=== PATIENT | male | born 1955 | race Caucasian/White ===

== ENCOUNTER 2016-10-21 17:08 | Emergency (ER) | payer SELFPAY ==
[~2016-10-21] VITALS: Ht 182.9 cm; Wt 84.1 kg
[~2016-10-21 17:08] MED LIST: DULE100A INH; GABA600T PO; HUMSS; METF500 PO
[2016-10-21 17:10] VITALS: BP 101/66; PULSE 105; RESP 12; TEMP 98.4; O2SAT 96
== END 2016-10-21 18:11 | disposition left against medical advice (07) ==
LOC: NED 17:08
DX: M54.9 Dorsalgia, unspecified (principal)
CPT/HCPCS: 99281

== ENCOUNTER 2016-11-06 08:25 | Inpatient (IN) | payer OTHER ==
[~2016-11-06] VITALS: Ht 182.9 cm; Wt 85.6 kg
[2016-11-06 08:27] VITALS: BP 104/56; PULSE 98; RESP 18; TEMP 97.6; O2SAT 98
[2016-11-06] MEDS ORDERED: LACT10SO27 (08:54)
[2016-11-06] MEDS ORDERED: SPIR100T PO (08:54)
[2016-11-06] MEDS ORDERED: FURO1TAB61 PO (08:54)
--- NOTE | 2016-11-06 08:54 | PD ---
HPI Chief Complaint: Pain: Acute or Chronic Time Seen by Provider: 08:45 Travel History International Travel<30 days: No Contact w/Intl Traveler<30days: No Traveled to known affect area: No History of Present Illness HPI 61-year-old male presents to the emergency department with complaint of mid back pain 8 weeks. Worse over the last week and a half. He has history of fracture to his T5 or T6 after coughing a year ago. He says this pain is similar to when it was fractured. 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 He then had a CT scan which showed the fracture. He denies new or recent injury in the last 8 weeks. Pain is midline. Says pain is 10/10. Denies paresthesias, loss of sensation, decreased range of motion, decreased strength to all extremities. Denies fever, chills, nausea, vomiting, abdominal pain, chest pain, shortness of breath. Has tried taking ibuprofen with no relief of symptoms. Pain is worse with sitting, palpation, walking. No known relieving factors. History of COPD, end-stage renal disease, hypertension, diabetes, neuropathy. Dr. Lemus is primary care provider. No other modifying factors or associated signs and symptoms. PFSH Past Medical History Cirrhosis: Yes COPD: Yes Diabetes: Yes Diminished Hearing: No Hepatitis: Yes (C) Respiratory: Yes (COPD) Past Surgical History Abdominal Surgery: Yes (bowel resection for diverticulitis, HERNIA MESH) Social History Alcohol Use: No Tobacco Use: No Substance Use: No Allergies-Medications (Allergen,Severity, Reaction): Coded Allergies: Penicillin (Verified Allergy, Severe, 11/06/16) Reported Meds & Prescriptions Reported Meds & Active Scripts Active Reported Hydroxyzine HCl 10 Mg Tab 10 Mg PO TID Oxycodone (Oxycodone HCl) 5 Mg Cap 5 Mg PO Q6H PRN Cipro (Ciprofloxacin HCl) 250 Mg Tab 250 Mg PO BID Lactulose Liq (Lactulose (Encephalopathy) Liq) 19 Gm/15 Ml Soln BID Lasix (Furosemide) 80 Mg Tab 80 Mg PO DAILY Spironolactone 100 Mg Tab 100 Mg PO DAILY Dulera 100 mcg/dose (Mometasone Furoate-Formoterol 100 mcg/dose) Unknown Strength Inh 2 Puff INH BID Glucophage 500 mg (Metformin HCl) 500 Mg Tab 500 Mg PO TID Gabapentin 600 Mg Tab 600 Mg PO TID Review of Systems Except as stated in HPI: all other systems reviewed are Neg Physical Exam Narrative GENERAL: Well-nourished, well-developed male patient, in no acute distress SKIN: Warm and dry. HEAD: Atraumatic. Normocephalic. EYES: Pupils equal and round, No scleral icterus. No injection or drainage. ENT: Mucosa pink and moist. Airway patent. NECK: Trachea midline. CARDIOVASCULAR: Regular rate and rhythm. No murmur appreciated. RESPIRATORY: No accessory muscle use. Clear to auscultation. Breath sounds equal bilaterally. GASTROINTESTINAL: Abdomen soft, non-tender, nondistended. Hepatic and splenic margins not palpable. Bowel sounds are active 4 quadrants. BACK: No rash. Midline point tenderness on palpation of the thoracic spine. MUSCULOSKELETAL: No obvious deformities. No clubbing. No cyanosis. No edema. NEUROLOGICAL: Awake and alert. Oriented 3. No obvious cranial nerve deficits. Motor grossly within normal limits. Normal speech. PSYCHIATRIC: Appropriate mood and affect; insight and judgment normal. Data Data Last Documented VS Vital Signs Date Time Temp Pulse Resp B/P Pulse Ox O2 Delivery O2 Flow Rate FiO2 11/06/16 08:27 97.6 98 18 104/[address] Thor Spine W/O Contrast (11/06/16 ) Consult Neurosurgery (11/06/16 ) (Hub Use Only)Inp Phy Cons/Ref (11/06/16 ) Admit Order (Ed Use Only) (11/06/16 11:54) MDM Medical Decision Making Medical Screen Exam Complete: Yes Emergency Medical Condition: Yes Medical Record Reviewed: Yes Differential Diagnosis Acute exacerbation of chronic back pain, back strain, chronic back pain Narrative Course 61-year-old male with mid thoracic back pain. History of T5 or T6 fracture secondary to a cough times one year ago. No new or recent injuries. Midline point tenderness on palpation of the thoracic spine on physical exam. CT thoracic spine ordered. 1057: CT thoracic spine concludes osteoporotic spine with anterior wedging as described above; there is wedging of T11 that could be acute; MRI is the only way we have to sort this out without prior films which I have none. 1110: I discussed the CT findings with Dr. Khanna, my attending physician, and she recommended to call neuro surgery for recommendation. Call placed to neurosurgeon. 1113: I spoke with Natali from Dr. Alvares's and she is going to have Dr. Alvares review the CT scan and call me back with further instruction. 1132: Return phone call from natali received. Dr. Alvares would like the patient admitted and MRI ordered. MRI of thoracic spine ordered. Consult Dr. Alvares entered. Call placed to [facility] admit patient. 1154: I spoke with KIMBERLY Greene. Report given for admission. Physician Communication Physician Communication Dr. Dia Hurst' PA-C KIMBERLY Pike Diagnosis Primary Impression: Thoracic back pain Qualified Code: M54.6 - Midline thoracic back pain, unspecified chronicity Admitting Information Admitting Physician Requests: Admit Charley López Nov 06, 2016 08:54
[2016-11-06] MEDS ORDERED: CIPR250T52 PO (08:55)
[2016-11-06] MEDS ORDERED: OXYC1CAP PO (08:56)
[2016-11-06] MEDS ORDERED: HYDR-755 PO (09:24)
--- NOTE | 2016-11-06 10:49 | RADRPT ---
EXAM DATE/TIME: 11/06/2016 09:45 [facility] COMPARISON: No previous studies available for comparison. INDICATIONS : Mid back pain. History of T5 fracture. RADIATION DOSE: 37.81 CTDIvol (mGy) MEDICAL HISTORY : Chronic obstructive pulmonary disease. Hepatitis C. Diabetes mellitus type 2. SURGICAL HISTORY : Kyphoplasty. ENCOUNTER: Initial ACUITY: 2 months PAIN SCALE: 10/10 LOCATION: Mid-upper back TECHNIQUE: Volumetric scanning of the thoracic spine was performed. Multiplanar reconstructions in the sagittal , coronal and oblique axial planes were performed. Using automated exposure control and adjustment o f the mA and/or kV according to patient size, radiation dose was kept as low as reasonably achievable to obtain optimal diagnostic quality images. FINDINGS: The patient has had a previous kyphoplasty in the T-6 vertebral body. There is minimal anterior wedging of T-11, age indeterminate. There is minimal loss of vertebral bod y height at T-9. There is moderate loss of disc space height at multiple levels. Anterior osteophyt es are noted. CONCLUSION: Osteoporotic spine with anterior wedging as described above. There is wedging of T-11 that could be acute. MRI is the only way we have to sort this out without prior films which I have none. Kiko Maldonado MD FACR on November 06, 2016 at 10:40 Board Certified Radiologist. This report was verified electronically.
[2016-11-06] MEDS ORDERED: ONDANSETRON HCL 4 MG/2 ML VIAL IV PUSH PRN (12:15)
[2016-11-06] MEDS ORDERED: HYDROmorphone HCL PF 1 MG/ML VIAL IV PUSH PRN (12:15)
[2016-11-06] MEDS ORDERED: GLUCAGON 1 MG/ML VIAL OTHER PRN (12:15)
[2016-11-06] MEDS ORDERED: RESP: ALBUTEROL 0.63 MG/3 ML NEB (PRN) NEB (12:15)
[2016-11-06] MEDS ORDERED: ACETAMINOPHEN 325 MG TAB PO PRN (12:15)
[2016-11-06] MEDS ORDERED: DEXTROSE 50% IN WATER 50 ML VIAL(D50) IV PUSH PRN (12:15)
[2016-11-06] MEDS ORDERED: ACETAMINOPHEN/HYDROcodone 325 MG/5 MG TAB PO PRN ×2 (12:15)
--- NOTE | 2016-11-06 12:16 | HHI.HP ---
[facility] Service [place] [facility] Primary Care Physician Non-Staff Admission Diagnosis thoracic back pain, thoracic fracture Diagnoses: (1) Back pain Diagnosis: Principal Chief Complaint: back pain Travel History International Travel<30 Days: No Contact w/Intl Traveler <30 Da: No Traveled to Known Affected Are: No History of Present Illness patient is a 61 y/o male with history of thoracic spine fracture- s/p surgery, about a year ago presented to ER with back pain. he says that the pain is in upper back. pain started several weeks ago and gradually got worse. he says that the pain is worse when he's sleeping on his side and better when he's walking. he tried some oxycodone and motrin at home with no significant improvement. he denies any weakness of the legs, urine or stool incontinence. he doesn't recall any recent falls or injuries. Review of Systems Constitutional: DENIES: Fever, Weight loss, Chills, Night Sweats Eyes: DENIES: Blurred vision, Diplopia, Vision loss, Double Vision Ears, nose, mouth, throat: DENIES: Tinnitus, Vertigo, Throat pain, Epistaxis Respiratory: DENIES: Apneas, Cough, Snoring, Wheezing, Hemoptysis, Sputum production, Shortness of breath Cardiovascular: DENIES: Chest pain, Palpitations, Syncope, Dyspnea on Exertion , PND, Lower Extremity Edema, Orthopnea, Claudication Gastrointestinal: DENIES: Abdominal pain, Black stools, Bloody stools, Constipation, Diarrhea, Nausea, Vomiting, Difficulty Swallowing, Anorexia Genitourinary: DENIES: Urinary frequency, Urgency, Hematuria, Dysuria Musculoskeletal: COMPLAINS OF: Back pain, DENIES: Joint pain, Muscle aches, Stiffness, Joint Swelling Integumentary: DENIES: Rash Neurologic: DENIES: Abnormal gait, Headache, Localized weakness, Paresthesias, Seizures, Speech Problems, Tremor, Poor Balance Psychiatric: DENIES: Anxiety, Confusion, Mood changes, Depression, Hallucinations, Agitation, Suicidal Ideation, Homicidal Ideation, Delusions Past Family Social History Past Medical History diabetes mellitus hypertension cirrhosis COPD diverticulitis Past Surgical History back surgery surgery on the left hand colon resection Reported Medications Hydroxyzine HCl 10 Mg Tab 10 Mg PO TID Oxycodone (Oxycodone HCl) 5 Mg Cap 5 Mg PO Q6H PRN Cipro (Ciprofloxacin HCl) 250 Mg Tab 250 Mg PO BID Lactulose Liq (Lactulose (Encephalopathy) Liq) 19 Gm/15 Ml Soln BID Lasix (Furosemide) 80 Mg Tab 80 Mg PO DAILY Spironolactone 100 Mg Tab 100 Mg PO DAILY Dulera 100 mcg/dose (Mometasone Furoate-Formoterol 100 mcg/dose) Unknown Strength Inh 2 Puff INH BID Glucophage 500 mg (Metformin HCl) 500 Mg Tab 500 Mg PO TID Gabapentin 600 Mg Tab 600 Mg PO TID Allergies: Coded Allergies: Penicillin (Verified Allergy, Severe, 11/06/16) Family History not relevant to this admission. Social History no smoking or drinking. Physical Exam Vital Signs Vital Signs Date Time Temp Pulse Resp B/P Pulse Ox O2 Delivery O2 Flow Rate FiO2 11/06/16 08:27 97.6 98 18 104/56 98 Room Air Physical Exam GENERAL: This is a well-nourished, well-developed patient, in no apparent distress. SKIN: No rashes, ecchymoses or lesions. Cool and dry. HEAD: Atraumatic. Normocephalic. No temporal or scalp tenderness. EYES: Pupils equal round and reactive. Extraocular motions intact. No scleral icterus. No injection or drainage. ENT: Nose without bleeding, purulent drainage or septal hematoma. Throat without erythema, tonsillar hypertrophy or exudate. Uvula midline. Airway patent. NECK: Trachea midline. No JVD or lymphadenopathy. Supple, nontender, no meningeal signs. CARDIOVASCULAR: Regular rate and rhythm without murmurs, gallops, or rubs. RESPIRATORY: Clear to auscultation. Breath sounds equal bilaterally. No wheezes , rales, or rhonchi. GASTROINTESTINAL: Abdomen soft, non-tender, nondistended. No hepato-splenomegaly , or palpable masses. No guarding. MUSCULOSKELETAL: Extremities without clubbing, cyanosis, or edema. No joint tenderness, effusion, or edema noted. No calf tenderness. Negative Homans sign bilaterally. NEUROLOGICAL: Awake and alert. Cranial nerves II through XII intact. Motor and sensory grossly within normal limits. Five out of 5 muscle strength in all muscle groups. Normal speech. Assessment and Plan Assessment and Plan A/P - back pain with history of thoracic spine fracture and surgery CT of the thoracic spine with possible acute fracture of T11 start pain management- MRI of the thoracic spine pending- neurosurgery consulted. -diabetes mellitus; accu-check with SSI -hypertension; vasotec as needed -Cirrhosis; resume home meds- pending the BMP today. -COPD with no exacerbation; neb treatment as needed -DVT prophylaxis with SCD's- pending neurosurgery evaluation. Discussed Condition With ER and the patient. Physician Certification 2 Midnight Certification Type: Admission for Inpatient Services Order for Inpatient Services The services are ordered in accordance with Medicare regulations or non- Medicare payer requirements, as applicable. In the case of services not specified as inpatient-only, they are appropriately provided as inpatient services in accordance with the 2-midnight benchmark. Estimated LOS (days): 2 days is the estimated time the patient will need to remain in the hospital, assuming treatment plan goals are met and no additional complications. Post-Hospital Plan: Not yet determined Problem Qualifiers (1) Back pain: Qualified Code: M54.6 - Thoracic back pain, unspecified back pain laterality, unspecified chronicity Enedina Prajapati MD Nov 06, 2016 12:16
[2016-11-06 12:40] LABS: AUTOMATED NEUTROPHIL # 3.3 TH/MM3 (1.8-7.7); BASOPHIL % 0.6 % (0.0-2.0); EOSINOPHIL # 0.4 TH/MM3 (0-0.4); EOSINOPHIL % 7.7 % (0.0-4.0); HEMATOCRIT 25.4 % (39.0-51.0); HEMO FLAGS DIFF FINAL; LYMPH % 16.4 % (9.0-44.0); LYMPHOCYTE # 0.9 TH/MM3 (1.0-4.8); MEAN CELL VOLUME 84.8 FL (80.0-100.0); MEAN CORPUSCULAR HEMOGLOBIN 29.5 PG (27.0-34.0); MEAN CORPUSCULAR HGB CONC 34.8 % (32.0-36.0); MONO % 13.7 % (0.0-8.0); NEUT % 61.6 % (16.0-70.0); PLATELET COUNT 125 TH/MM3 (150-450); RED CELL DISTRIBUTION WIDTH 16.4 % (11.6-17.2); WHITE BLOOD COUNT 5.4 TH/MM3 (4.0-11.0)
[2016-11-06 12:52] LABS: BICARBONATE 20.7 MEQ/L (21.0-32.0); POTASSIUM 4.4 MEQ/L (3.5-5.1)
[2016-11-06] MEDS ORDERED: ENALAPRILAT 1.25 MG/ML VIAL IV PUSH PRN (13:00)
--- NOTE | 2016-11-06 14:17 | PD.CONS ---
(Srinivasan Alvares MD) HPI Consult Requested By Primary Care Physician Non-Staff (Srinivasan Alvares MD) Service Neurosurgery Consult Requested By ED physician Reason for Consult Thoracic fracture History of Present Illness Mr. Mccoy is a 61-year-old male who presents to the emergency department with intractable posterior thoracic pain. He reports his pain began several weeks ago and has been progressively getting worse. He had a previous history of T6 kyphoplasty with resolution of his pain. Mr. Mcmahan denies any precipitating factors, trauma, or falls. He complains the pain is located in the upper - mid thoracic region, around the T5/6 area. He denies any radiating pain, dysesthesias, sensory loss in his legs, focal weakness, bowel or bladder dysfunction. He rates his pain as a 10/10. A CT of the thoracic spine showed a wedge compression fracture at T11. A neurosurgical evaluation was requested. (Mishel Foley) Review of Systems Constitutional: DENIES: Fever, Chills Eyes: DENIES: Diplopia, Vision loss Ears, nose, mouth, throat: DENIES: Hearing loss Respiratory: DENIES: Apneas, Cough, Hemoptysis Cardiovascular: DENIES: Chest pain, Palpitations Gastrointestinal: DENIES: Abdominal pain, Nausea, Vomiting Genitourinary: DENIES: Urinary incontinence Musculoskeletal: COMPLAINS OF: Back pain Neurologic: DENIES: Abnormal gait, Localized weakness, Paresthesias Psychiatric: DENIES: Hallucinations (Mishel Foley) Past Family Social History Allergies: Coded Allergies: Penicillin (Verified Allergy, Severe, 11/06/16) Past Medical History diabetes mellitus hypertension cirrhosis COPD diverticulitis Past Surgical History Past Surgical History back surgery surgery on the left hand colon resection Reported Medications Hydroxyzine HCl 10 Mg Tab 10 Mg PO TID Oxycodone (Oxycodone HCl) 5 Mg Cap 5 Mg PO Q6H PRN Cipro (Ciprofloxacin HCl) 250 Mg Tab 250 Mg PO BID Lactulose Liq (Lactulose (Encephalopathy) Liq) 19 Gm/15 Ml Soln BID Lasix (Furosemide) 80 Mg Tab 80 Mg PO DAILY Spironolactone 100 Mg Tab 100 Mg PO DAILY Dulera 100 mcg/dose (Mometasone Furoate-Formoterol 100 mcg/dose) Unknown Strength Inh 2 Puff INH BID Glucophage 500 mg (Metformin HCl) 500 Mg Tab 500 Mg PO TID Gabapentin 600 Mg Tab 600 Mg PO TID Active Ordered Medications Current Medications Medications (Trade) Dose Ordered Sig/[place] Route PRN Reason Start Time Stop Time Status Last Admin Dose Admin Dextrose (D50w (Vial) Inj) 25 ml UNSCH PRN IV PUSH HYPOGLYCEMIA-SEE COMMENTS 11/06/16 12:15 Glucagon (Glucagon Inj) 1 mg UNSCH PRN OTHER HYPOGLYCEMIA-SEE COMMENTS 11/06/16 12:15 Acetaminophen/ Hydrocodone Bitart ([place] 5-325 Mg) 1 tab Q4H PRN PO PAIN 1-5 11/06/16 12:15 Acetaminophen/ Hydrocodone Bitart ([place] 5-325 Mg) 2 tab Q4H PRN PO PAIN 6-10 11/06/16 12:15 Hydromorphone HCl (Dilaudid Pf Inj) 1 mg Q4H PRN IV PUSH BREAKTHROUGH PAIN 11/06/16 12:15 Ondansetron HCl (Zofran Inj) 4 mg Q8H PRN IV PUSH NAUSEA 11/06/16 12:15 Acetaminophen (Tylenol) 650 mg Q4H PRN PO FEVER/HEADACHE 11/06/16 12:15 Budesonide/ Formoterol Fumarate (Symbicort 160-4.5 Inh) 2 puff BID INH 11/06/16 21:00 Enalaprilat (Vasotec Inj) 1.25 mg Q8H PRN IV PUSH SBP> OR = 180, DBP> OR = 100 11/06/16 13:00 Family History Noncontributory Social History He denies tobacco, alcohol or illicit drug use (Mishel Foley) Physical Exam Vital Signs Vital Signs Date Time Temp Pulse Resp B/P Pulse Ox O2 Delivery O2 Flow Rate FiO2 11/06/16 08:27 97.6 98 18 104/56 98 Room Air Physical Exam Mr. Mcmahan is alert, awake and oriented to time, place and person. Speech is fluent Cranial nerve examination demonstrates the pupils to be equal, round, and reactive to light. Extra-ocular movements are intact. Facial motor and sensory function are normal and symmetrical. Gross hearing is intact, bilaterally. The uvula is midline and elevates symmetrically with the soft palate. Sternocleidomastoid and trapezius muscles have normal and symmetrical strength. Other cranial nerves are intact. Cervical spine has a some decrease range of motion in anterior flexion, extension, lateral bending, and rotation with discomfort Muscle testing reveals normal bulk and tone. Muscle strength is 5/5 in all muscle groups of both upper extremities including deltoid, biceps, triceps, brachioradialis, wrist extension and machine operator picker. In the lower extremities, strength is 5/5 in both iliopsoas, quadriceps, hamstrings, plantar flexion, dorsiflexion , and extensor hallicus longus. Sensory examination is intact to light touch in both the upper and lower extremities, symmetrically. Deep tendon reflexes are 2+ and symmetrical in the biceps, triceps, and brachioradialis, bilaterally, in the upper extremities. In the lower extremities , the patellar and Achilles are 2+, bilaterally. There is a bilateral plantar flexion response. Hoffmanns sign is negative. There is no clonus. Thoracic spine: tenderness and pain to palpation along the lower thoracic region Cerebellar examination is intact Laboratory Laboratory Tests Test 11/06/16 12:24 White Blood Count 5.4 Red Blood Count 3.00 Hemoglobin 8.8 Hematocrit 25.4 Mean Corpuscular Volume 84.8 Mean Corpuscular Hemoglobin 29.5 Mean Corpuscular Hemoglobin 34.8 Concent Red Cell Distribution Width 16.4 Platelet Count 125 Mean Platelet Volume 7.2 Neutrophils (%) (Auto) 61.6 Lymphocytes (%) (Auto) 16.4 Monocytes (%) (Auto) 13.7 Eosinophils (%) (Auto) 7.7 Basophils (%) (Auto) 0.6 Neutrophils # (Auto) 3.3 Lymphocytes # (Auto) 0.9 Monocytes # (Auto) 0.7 Eosinophils # (Auto) 0.4 Basophils # (Auto) 0.0 CBC Comment DIFF FINAL Differential Comment Sodium Level 134 Potassium Level 4.4 Chloride Level 103 Carbon Dioxide Level 20.7 Anion Gap 10 Blood Urea Nitrogen 20 Creatinine 1.67 Estimat Glomerular Filtration 42 Rate Random Glucose 95 Calcium Level 8.6 (Srinivasan Alvares MD) Physical Exam Mr. Mcmahan is alert, awake and oriented to time, place and person. Speech is appropriate. Cranial nerve examination demonstrates the pupils to be equal, round, and reactive to light. Extra-ocular movements are intact. Facial motor and sensory function are normal and symmetrical. Gross hearing is intact, bilaterally. The uvula is midline and elevates symmetrically with the soft palate. Sternocleidomastoid and trapezius muscles have normal and symmetrical strength. Other cranial nerves are intact. Cervical spine has a some decrease range of motion in anterior flexion, extension, lateral bending, and rotation with discomfort Muscle testing reveals normal bulk and tone. Muscle strength is 5/5 in all muscle groups of both upper extremities including deltoid, biceps, triceps, brachioradialis, wrist extension and machine operator picker. In the lower extremities, strength is 5/5 in both iliopsoas, quadriceps, hamstrings, plantar flexion, dorsiflexion , and extensor hallicus longus. Sensory examination is intact to light touch in both the upper and lower extremities, symmetrically. Deep tendon reflexes are 2+ and symmetrical in the biceps, triceps, and brachioradialis, bilaterally, in the upper extremities. In the lower extremities , the patellar and Achilles are 2+, bilaterally. There is a bilateral plantar flexion response. Hoffmanns sign is negative. There is no clonus. Thoracic spine: tenderness and pain to palpation along the lower thoracic region Cerebellar examination is intact to [id number] test Gait: He was observed ambulating appears stiff, but no ataxia seen (Mishel Foley) Result Diagram: 11/06/16 1224 11/06/16 1224 Attending Statement Neuro. I have reviewed his clinical and radiological findings. Start neuro checks in a serial fashion. He could have a pathological fracture. I recommend an MRI of the thoracic spine with and without contrast Respiratory. pulmonary toilette, nasotracheal suction, and breathing treatments with nebulizers. PT and OT Nutrition. Oral diet Renal. monitor closely urine output, BUN and creatinine Endocrine. Monitor serial Acu checks and SSI as needed in detail ID monitor for signs of infection Protonix for stress ulcer prophylaxis Hill hose and SCD's for DVT prophylaxis The exam, history, and the medical decision-making described in the above note were completed with the assistance of the mid-level provider. I reviewed and agree with the findings presented. I attest that I had a [id number] encounter with the patient on the same day, and personally performed and documented my assessment and findings in the medical record. (Srinivasan Alvares MD) Srinivasan Alvares MD Nov 06, 2016 14:17 Mishel Foley Nov 06, 2016 14:47
[2016-11-06 15:16] VITALS: BP 96/54; PULSE 88; RESP 18; O2SAT 97
[2016-11-06] MEDS: INSULIN ASPART SUPPLEMENTAL SCALE SQ SCH ×2 (15:57→20:26)
[2016-11-06] MEDS ORDERED: GADOBENATE DIM PF 529 MG/ML 20ML VIAL (for RAD MRI) IV ONE (16:25)
--- NOTE | 2016-11-06 17:32 | RADRPT ---
EXAM DATE/TIME: 11/06/2016 16:16 [facility] COMPARISON: CT THORACIC SPINE W/O CONTRAST, November 06, 2016, 9:45. INDICATIONS : Back pain. CONTRAST: 17 cc Multihance (gadobenate) IV MEDICAL HISTORY : Diabetes mellitus type 2. Liver disease. SURGICAL HISTORY : Colon resection. Kyphoplasty. ENCOUNTER: Initial ACUITY: 1 day PAIN SCORE: 5/10 LOCATION: Back pain TECHNIQUE: Multiplanar multisequence MRI of the thoracic spine was performed. FINDINGS: Sagittal images demonstrate normal vertebral body alignment and curvature. No focal area of marrow re placement are identified. The cord itself is normal in caliber and signal intensity. The conus termin ates normally. Axial images were performed from T1-T2 through T12-L1. There is previous kyphoplasty a t T6 as well as Schmorl's node involving the superior endplate of T11. T1-T2: No significant abnormalities identified. T2-T3: No significant abnormalities identified. T3-T4: No significant abnormalities identified. T4-T5: No significant abnormalities identified. T5-T6: No significant abnormalities identified. T6-T7: No significant abnormalities identified. T7-T8: No significant abnormalities identified. T8-T9: No significant abnormalities identified. T9-T10: No significant abnormalities identified. T10-T11: No significant abnormalities identified. T11-T12: There is Schmorl's superior endplate of T11 with enhancement centrally but no marrow edema t o suggest acute fracture. These occasionally can be symptom causing. T12-L1: No significant abnormalities identified. CONCLUSION: No evidence of acute fracture. Schmorl's node at T11. Ralph Loo MD on November 06, 2016 at 17:18 Board Certified Radiologist. This report was verified electronically.
[2016-11-06 18:47] VITALS: BP 124/67; PULSE 100; RESP 19; TEMP 98.5; O2SAT 99
[2016-11-06 20:22] VITALS: BP 116/63; PULSE 102; RESP 18; TEMP 96.6; O2SAT 97
[2016-11-06] MEDS: BUDESONIDE-FORMOTEROL 160/4.5 MCG INHALER INH SCH (20:26)
[2016-11-07 00:17] VITALS: BP 101/70; PULSE 99; RESP 18; TEMP 97.1; O2SAT 95
[2016-11-07 04:00] VITALS: BP 110/67; PULSE 101; RESP 20; TEMP 97; O2SAT 96
[2016-11-07] MEDS: INSULIN ASPART SUPPLEMENTAL SCALE SQ SCH ×4 (06:01→21:00)
[2016-11-07 07:55] VITALS: BP 124/90; PULSE 108; RESP 19; TEMP 96.9; O2SAT 97
[2016-11-07] MEDS: BUDESONIDE-FORMOTEROL 160/4.5 MCG INHALER INH SCH ×2 (09:00→22:44)
--- NOTE | 2016-11-07 11:07 | HHI.PR ---
Subjective Remarks resting with no acute distress. complaining of back pain which hasn't changed as much compared to yesterday. has some pain to the left arm. Objective Vitals Vital Signs Date Time Temp Pulse Resp B/P Pulse Ox O2 Delivery O2 Flow Rate FiO2 11/07/16 07:55 96.9 108 19 124/90 97 11/07/16 04:00 97.0 101 20 110/67 96 11/07/16 00:17 97.1 99 18 101/70 95 11/06/16 20:22 96.6 102 18 116/63 97 11/06/16 18:47 98.5 100 19 124/67 99 11/06/16 15:16 88 18 96/54 97 I/O 11/06/16 11/06/16 11/06/16 11/07/16 11/07/16 11/07/16 07:00 15:00 23:00 07:00 15:00 23:00 Intake Total 1440 ml 240 ml Balance 1440 ml 240 ml Intake Oral 1440 ml 240 ml # Voids 1 2 # Bowel Movements 0 Result Diagram: 11/06/16 1224 11/06/16 1224 Imaging Last Impressions Thoracic Spine MRI 11/06/16 0000 Signed Impressions: Service Date/Time: Sunday, November 06, 2016 16:16 - CONCLUSION: No evidence of acute fracture. Schmorl's node at T11. Ralph Loo MD Thoracic Spine CT 11/06/16 0000 Signed Impressions: Service Date/Time: Sunday, November 06, 2016 09:45 - CONCLUSION: Osteoporotic spine with anterior wedging as described above. There is wedging of T-11 that could be acute. MRI is the only way we have to sort this out without prior films which I have none. Kiko Maldonado MD FACR Objective Remarks GENERAL: This is a well-nourished, well-developed patient, in no apparent distress. CARDIOVASCULAR: Regular rate and regular rhythm without murmurs, gallops, or rubs. RESPIRATORY: Clear to auscultation. Breath sounds equal bilaterally. No wheezes , rales, or rhonchi. GASTROINTESTINAL: Abdomen soft, non-tender, nondistended. Normal, active bowel sounds MUSCULOSKELETAL: Extremities without clubbing, cyanosis, or edema. NEURO: Alert & Oriented x4 to person, place, time, situation. Moves all ext x4 Procedures none Medications and IVs Current Medications Dextrose (D50w (Vial) Inj) 25 ml UNSCH PRN IV PUSH HYPOGLYCEMIA-SEE COMMENTS; Start 11/06/16 at 12:15 Glucagon (Glucagon Inj) 1 mg UNSCH PRN OTHER HYPOGLYCEMIA-SEE COMMENTS; Start 11/06/16 at 12:15 Insulin Aspart (NovoLOG SUPPLEMENTAL SCALE) 1 ACHS SLIDING SCALE SQ ; Start 11/06/16 at 16:00 Acetaminophen/ Hydrocodone Bitart ([place] 5-325 Mg) 1 tab Q4H PRN PO PAIN 1-5; Start 11/06/16 at 12:15; Stop 11/06/16 at 14:37; Status DC Acetaminophen/ Hydrocodone Bitart ([place] 5-325 Mg) 2 tab Q4H PRN PO PAIN 6-10 ; Start 11/06/16 at 12:15; Stop 11/06/16 at 14:37; Status DC Hydromorphone HCl (Dilaudid Pf Inj) 1 mg Q4H PRN IV PUSH BREAKTHROUGH PAIN; Start 11/06/16 at 12:15 Ondansetron HCl (Zofran Inj) 4 mg Q8H PRN IV PUSH NAUSEA; Start 11/06/16 at 12: 15 Acetaminophen (Tylenol) 650 mg Q4H PRN PO FEVER/HEADACHE; Start 11/06/16 at 12: 15 Budesonide/ Formoterol Fumarate (Symbicort 160-4.5 Inh) 2 puff BID INH Last administered on 11/06/16t 20:26; Start 11/06/16 at 21:00 Albuterol Sulfate (Albuterol Neb) 0.63 mg Q6HR NEB PRN NEB SHORTNESS OF BREATH ; Start 11/06/16 at 12:15 Enalaprilat (Vasotec Inj) 1.25 mg Q8H PRN IV PUSH SBP> OR = 180, DBP> OR = 100 ; Start 11/06/16 at 13:00 Oxycodone HCl (Roxicodone) 5 mg Q4H PRN PO PAIN LESS THAN 5 ON SCALE Last administered on 11/06/16t 15:10; Start 11/06/16 at 14:45 Oxycodone HCl (Roxicodone) 10 mg Q4H PRN PO PAIN GREATER THAN 5 Last administered on 11/07/16 09:22; Start 11/06/16 at 14:45 Gadobenate Dimeglumine (Multihance Pf Inj) 17 ml STK-MED ONCE IV Last administered on 11/06/16 16:25; Start 11/06/16 at 16:25; Stop 11/06/16 at 16:26; Status DC A/P Assessment and Plan A/P - back pain with history of thoracic spine fracture and surgery CT of the thoracic spine with possible acute fracture of T11 MRI of the thoracic spine with no acute fracture. continue pain management- - neurosurgery consulted. -acute kidney injury; start gentle IV hydration- BMP in am -anemia due to chronic disease- will monitor; CBC in am -diabetes mellitus; accu-check with SSI -hypertension; vasotec as needed -Cirrhosis;hold diuretics due to renal failure -COPD with no exacerbation; neb treatment as needed -DVT prophylaxis with SCD's- Enedina Prajapati MD Nov 07, 2016 11:07
[2016-11-07] MEDS ORDERED: SODIUM CHLORID 0.9% 500 ML INJ 500 ML IV ONE (11:15)
[2016-11-07 13:13] VITALS: BP 130/66; PULSE 99; RESP 16; TEMP 99.3; O2SAT 94
--- NOTE | 2016-11-07 13:38 | HHI.NSPN ---
(Mishel Foley) Note Status Status: Progress Note (Mishel Foley) Interval History Interval History Mr. Mccoy is a 61-year-old male who presents to the emergency department with intractable posterior thoracic pain. He reports his pain began several weeks ago and has been progressively getting worse. He had a previous history of T6 kyphoplasty with resolution of his pain. Mr. Mcmahan denies any precipitating factors, trauma, or falls. He complains the pain is located in the upper - mid thoracic region, around the T5/6 area. He denies any radiating pain, dysesthesias, sensory loss in his legs, focal weakness, bowel or bladder dysfunction. He rates his pain as a 10/10. A CT of the thoracic spine showed a wedge compression fracture at T11. A neurosurgical evaluation was requested. 3: reports pain located between the shoulder blades. He also reports of some pain in the left arm. MRI T spine showed Schmorl's node at T11 without any edema suggesting an acute component. (Mishel Foley) Labs, Micro, & Vital Signs Results Date Time Temp Pulse Resp B/P Pulse Ox O2 Delivery O2 Flow Rate FiO2 11/07/16 13:13 99.3 99 16 130/66 94 11/07/16 07:55 96.9 108 19 124/90 97 11/07/16 04:00 97.0 101 20 110/67 96 11/07/16 00:17 97.1 99 18 101/70 95 11/06/16 20:22 96.6 102 18 116/63 97 11/06/16 18:47 98.5 100 19 124/67 99 11/06/16 15:16 88 18 96/54 97 11/07/16 07:00 Intake Total 1680 ml Balance 1680 ml Constitutional Vital Signs Date Time Temp Pulse Resp B/P Pulse Ox O2 Delivery O2 Flow Rate FiO2 11/07/16 13:13 99.3 99 16 130/66 94 11/07/16 07:55 96.9 108 19 124/90 97 11/07/16 04:00 97.0 101 20 110/67 96 11/07/16 00:17 97.1 99 18 101/70 95 11/06/16 20:22 96.6 102 18 116/63 97 11/06/16 18:47 98.5 100 19 124/67 99 11/06/16 15:16 88 18 96/54 97 11/07/16 07:00 Intake Total 1680 ml Balance 1680 ml (Mishel Foley) Review of Systems/Exam Exam Mr. Mcmahan is alert and oriented to time, place and person. Speech is fluent. Cranial nerve examination demonstrates the pupils to be equal, round, and reactive to light. Extra-ocular movements are intact. Facial motor are normal and symmetrical. Other cranial nerves are intact. Cervical spine has a good range of motion in anterior flexion, extension, lateral bending, and rotation without pain. Muscle testing reveals normal bulk and tone. Muscle strength is 5/5 in all muscle groups of both upper extremities including deltoid, biceps, triceps, brachioradialis, wrist extension and signal wirer. In the lower extremities, strength is 5/5 in both iliopsoas, quadriceps, hamstrings, plantar flexion, dorsiflexion , and extensor hallicus longus. Sensory examination is intact to light touch in both the upper and lower extremities, symmetrically. Deep tendon reflexes are 2+ and symmetrical in the biceps, triceps, and brachioradialis, bilaterally, in the upper extremities. In the lower extremities , the patellar and Achilles are 2+, bilaterally. There is a bilateral plantar flexion response. Hoffmanns sign is negative. There is no clonus. Thoracic spine: tenderness and pain to palpation along the lower thoracic region Cerebellar examination is intact to [id number] test Gait: He was observed ambulating appears stiff, but no ataxia seen (Mishel Foley) Medications Current Medications Current Medications Medications (Trade) Dose Ordered Sig/Talon Route PRN Reason Start Time Stop Time Status Last Admin Dose Admin Dextrose (D50w (Vial) Inj) 25 ml UNSCH PRN IV PUSH HYPOGLYCEMIA-SEE COMMENTS 11/06/16 12:15 Glucagon (Glucagon Inj) 1 mg UNSCH PRN OTHER HYPOGLYCEMIA-SEE COMMENTS 11/06/16 12:15 Hydromorphone HCl (Dilaudid Pf Inj) 1 mg Q4H PRN IV PUSH BREAKTHROUGH PAIN 11/06/16 12:15 Ondansetron HCl (Zofran Inj) 4 mg Q8H PRN IV PUSH NAUSEA 11/06/16 12:15 Acetaminophen (Tylenol) 650 mg Q4H PRN PO FEVER/HEADACHE 11/06/16 12:15 Budesonide/ Formoterol Fumarate (Symbicort 160-4.5 Inh) 2 puff BID INH 11/06/16 21:00 11/06/16 20:26 Enalaprilat (Vasotec Inj) 1.25 mg Q8H PRN IV PUSH SBP> OR = 180, DBP> OR = 100 11/06/16 13:00 Oxycodone HCl (Roxicodone) 5 mg Q4H PRN PO PAIN LESS THAN 5 ON SCALE 11/06/16 14:45 11/06/16 15:10 Oxycodone HCl 10 mg 10 mg Q4H PRN PO PAIN GREATER THAN 5 11/06/16 14:45 11/07/16 09:22 Sodium Chloride (NS 500 ml Inj) 500 ml @ 50 mls/hr Q10H ONCE IV 11/07/16 11:15 11/07/16 21:14 11/07/16 13:01 (Mishel Foley) Medical Decision Making MDM Remarks 61 y/o male with upper thoracic pain, MRI T spine shows no acute fractures, Schmorl's node at T11 (Mishel Foley) Plan Plan Remarks Dr. Alvares recommending MRI C spine, dw pt regarding MRI T spine results, may benefit with pain management (Mishel Foley) Attending Statement His thoracic MRI did not show any thoracic fracture Will obtain MRI cervical spine to rule out cervical etiology of his interscapular pain.' The exam, history, and the medical decision-making described in the above note were completed with the assistance of the mid-level provider. I reviewed and agree with the findings presented. I attest that I had a [id number] encounter with the patient on the same day, and personally performed and documented my assessment and findings in the medical record. (Srinivasan Alvares MD) Mishel Foley Nov 07, 2016 13:38 Srinivasan Alvares MD Nov 07, 2016 14:11 Srinivasan Alvares MD Nov 07, 2016 14:11
--- NOTE | 2016-11-07 16:14 | RADRPT ---
EXAM DATE/TIME: 11/07/2016 15:11 [facility] COMPARISON: No previous studies available for comparison. INDICATIONS : Pain. MEDICAL HISTORY : Diabetes mellitus type 2. Liver disease. SURGICAL HISTORY : Colon resection. Kyphoplasty. Orthopedic surgery. ENCOUNTER: Initial ACUITY: 2 day PAIN SCORE: 3/10 LOCATION: Neck. TECHNIQUE: Multiplanar, multisequence MRI examination of the cervical spine was performed. FINDINGS: Sagittal images demonstrate normal vertebral body alignment and curvature. No focal areas of marrow r eplacement are identified. The craniocervical junction appears normal. The cord itself is normal in c aliber and signal intensity. Axial images were performed from C2-3 through C7-T1. There is multilevel disc space narrowing and marginal osteophyte formation maximal at C2-C3. C2-C3: No significant abnormalities identified. C3-C4: No significant abnormalities identified. C4-C5: There is mild diffuse annular bulge of the disc. The neural foramina are clear bilaterally. There is no significant spinal canal stenosis. C5-C6: There is mild annular bulge of the disc. There is no significant spinal canal stenosis. C6-C7: No significant abnormalities identified. C7-T1: No significant abnormalities identified. CONCLUSION: 1. Mild degenerative changes as described above. No evidence of disc protrusion or spinal canal steno sis. Ralph Loo MD on November 07, 2016 at 16:11 Board Certified Radiologist. This report was verified electronically.
[2016-11-07 16:31] VITALS: BP 132/65; PULSE 99; RESP 16; TEMP 98.7; O2SAT 95
[2016-11-07 20:00] VITALS: BP 134/81; PULSE 112; RESP 18; TEMP 97; O2SAT 94
[2016-11-07] MEDS: LACTULOSE SYRUP 20 GM/30 ML CUP PO SCH (22:42)
[2016-11-08] VITALS: BP 132/78; PULSE 87; RESP 18; TEMP 97.6; O2SAT 94
[2016-11-08 04:00] VITALS: BP 99/59; PULSE 89; RESP 18; TEMP 97.4; O2SAT 96
[2016-11-08] MEDS: INSULIN ASPART SUPPLEMENTAL SCALE SQ SCH ×4 (06:37→21:00)
[2016-11-08 08:33] LABS: AUTOMATED NEUTROPHIL # 2.9 TH/MM3 (1.8-7.7); BASOPHIL # 0.1 TH/MM3 (0-0.2); BASOPHIL % 1.7 % (0.0-2.0); EOSINOPHIL # 0.3 TH/MM3 (0-0.4); EOSINOPHIL % 6.5 % (0.0-4.0); HEMATOCRIT 23.1 % (39.0-51.0); HEMO FLAGS DIFF FINAL; LYMPH % 19.4 % (9.0-44.0); MEAN CELL VOLUME 84.3 FL (80.0-100.0); MEAN CORPUSCULAR HEMOGLOBIN 29.8 PG (27.0-34.0); MEAN CORPUSCULAR HGB CONC 35.3 % (32.0-36.0); MONO % 14.7 % (0.0-8.0); NEUT % 57.7 % (16.0-70.0); PLATELET COUNT 138 TH/MM3 (150-450); RED BLOOD COUNT 2.74 MIL/MM3 (4.50-5.90); RED CELL DISTRIBUTION WIDTH 16.2 % (11.6-17.2)
[2016-11-08 08:44] VITALS: BP 101/65; PULSE 86; RESP 18; TEMP 97.5; O2SAT 94
[2016-11-08 08:59] LABS: BICARBONATE 25.4 MEQ/L (21.0-32.0); POTASSIUM 4.2 MEQ/L (3.5-5.1)
[2016-11-08] MEDS: BUDESONIDE-FORMOTEROL 160/4.5 MCG INHALER INH SCH ×2 (09:00→20:45)
[2016-11-08] MEDS: LACTULOSE SYRUP 20 GM/30 ML CUP PO SCH ×2 (09:14→20:42)
[2016-11-08] MEDS ORDERED: SODIUM CHLORID 0.9% 500 ML INJ 500 ML IV ONE (12:00)
--- NOTE | 2016-11-08 12:06 | HHI.PR ---
Subjective Remarks in no acute distress. back pain is fairly controlled. no new complaints. d/w the RN. Objective Vitals Vital Signs Date Time Temp Pulse Resp B/P Pulse Ox O2 Delivery O2 Flow Rate FiO2 11/08/16 08:44 97.5 86 18 101/65 94 11/08/16 04:00 97.4 89 18 99/59 96 11/08/16 00:00 97.6 87 18 132/78 94 11/08/16 00:00 97.6 87 18 132/78 94 11/07/16 20:00 97.0 112 18 134/81 94 11/07/16 16:31 98.7 99 16 132/65 95 11/07/16 13:13 99.3 99 16 130/66 94 I/O 11/07/16 11/07/16 11/07/16 11/08/16 11/08/16 11/08/16 07:00 15:00 23:00 07:00 15:00 23:00 Intake Total 240 ml 240 ml 360 ml Balance 240 ml 240 ml 360 ml Intake Oral 240 ml 240 ml 360 ml # Voids 2 6 6 # Bowel Movements 0 Result Diagram: 11/08/16 0650 11/08/16 0650 Imaging Last Impressions Cervical Spine MRI 11/07/16 0000 Signed Impressions: Service Date/Time: November 15:11 - CONCLUSION: 1. Mild degenerative changes as described above. No evidence of disc protrusion or spinal canal stenosis. Ralph Loo MD Thoracic Spine MRI 11/06/16 0000 Signed Impressions: Service Date/Time: Sunday, November 06, 2016 16:16 - CONCLUSION: No evidence of acute fracture. Schmorl's node at T11. Ralph Loo MD Thoracic Spine CT 11/06/16 0000 Signed Impressions: Service Date/Time: Sunday, November 06, 2016 09:45 - CONCLUSION: Osteoporotic spine with anterior wedging as described above. There is wedging of T-11 that could be acute. MRI is the only way we have to sort this out without prior films which I have none. Kiko Maldonado MD FACR Objective Remarks GENERAL: This is a well-nourished, well-developed patient, in no apparent distress. CARDIOVASCULAR: Regular rate and regular rhythm without murmurs, gallops, or rubs. RESPIRATORY: Clear to auscultation. Breath sounds equal bilaterally. No wheezes , rales, or rhonchi. GASTROINTESTINAL: Abdomen soft, non-tender, nondistended. Normal, active bowel sounds MUSCULOSKELETAL: Extremities without clubbing, cyanosis, or edema. NEURO: Alert & Oriented x4 to person, place, time, situation. Moves all ext x4 Procedures none Medications and IVs Current Medications Dextrose (D50w (Vial) Inj) 25 ml UNSCH PRN IV PUSH HYPOGLYCEMIA-SEE COMMENTS; Start 11/06/16 at 12:15 Glucagon (Glucagon Inj) 1 mg UNSCH PRN OTHER HYPOGLYCEMIA-SEE COMMENTS; Start 11/06/16 at 12:15 Insulin Aspart (NovoLOG SUPPLEMENTAL SCALE) 1 ACHS SLIDING SCALE SQ Last administered on 11/08/16 06:37; Start 11/06/16 at 16:00 Acetaminophen/ Hydrocodone Bitart ([place] 5-325 Mg) 1 tab Q4H PRN PO PAIN 1-5; Start 11/06/16 at 12:15; Stop 11/06/16 at 14:37; Status DC Acetaminophen/ Hydrocodone Bitart ([place] 5-325 Mg) 2 tab Q4H PRN PO PAIN 6-10 ; Start 11/06/16 at 12:15; Stop 11/06/16 at 14:37; Status DC Hydromorphone HCl (Dilaudid Pf Inj) 1 mg Q4H PRN IV PUSH BREAKTHROUGH PAIN; Start 11/06/16 at 12:15 Ondansetron HCl (Zofran Inj) 4 mg Q8H PRN IV PUSH NAUSEA; Start 11/06/16 at 12: 15 Acetaminophen (Tylenol) 650 mg Q4H PRN PO FEVER/HEADACHE; Start 11/06/16 at 12: 15 Budesonide/ Formoterol Fumarate (Symbicort 160-4.5 Inh) 2 puff BID INH Last administered on 11/07/16 22:44; Start 11/06/16 at 21:00 Albuterol Sulfate (Albuterol Neb) 0.63 mg Q6HR NEB PRN NEB SHORTNESS OF BREATH ; Start 11/06/16 at 12:15 Enalaprilat (Vasotec Inj) 1.25 mg Q8H PRN IV PUSH SBP> OR = 180, DBP> OR = 100 ; Start 11/06/16 at 13:00 Oxycodone HCl (Roxicodone) 5 mg Q4H PRN PO PAIN LESS THAN 5 ON SCALE Last administered on 11/06/16 15:10; Start 11/06/16 at 14:45 Oxycodone HCl (Roxicodone) 10 mg Q4H PRN PO PAIN GREATER THAN 5 Last administered on 11/07/16 14:27; Start 11/06/16 at 14:45 Gadobenate Dimeglumine 17 ml 17 ml STK-MED ONCE IV Last administered on 16:25; Start 11/06/16 at 16:25; Stop 11/06/16 at 16:26; Status DC Sodium Chloride (NS 500 ml Inj) 500 ml @ 50 mls/hr Q10H ONCE IV Last administered on 11/07/16 13:01; Start 11/07/16 at 11:15; Stop 11/07/16 at 21:14; Status DC Lactulose (Lactulose Liq) 30 ml BID PO Last administered on 11/08/16 09:14; Start 11/07/16 at 21:00 A/P Assessment and Plan A/P - back pain with history of thoracic spine fracture and surgery CT of the thoracic spine with possible acute fracture of T11 MRI of the thoracic spine with no acute fracture. MRI of the cervical spine with no spinal stenosis continue pain management- - neurosurgery following. consulted PT. -acute kidney injury; continue gentle IV hydration- BMP in am -anemia due to chronic disease- check iron profile and stool for blood- H/H in am to ensure stability. -diabetes mellitus; accu-check with SSI -hypertension; vasotec as needed -Cirrhosis;hold diuretics for now due to renal failure- continue lactulose -COPD with no exacerbation; neb treatment as needed -DVT prophylaxis with SCD's- Discharge Planning possible discharge in am if H/H and renal function stable and pain controlled. case management consulted for dc planning- possible SNF? Enedina Prajapati MD Nov 08, 2016 12:05
[2016-11-08 12:44] LABS: FERRITIN 32 NG/ML (26-388); TRANSFERRIN IRON PROFILE 242 MG/DL (200-360)
[2016-11-08 12:45] VITALS: BP 102/59; PULSE 91; RESP 18; TEMP 97.9; O2SAT 97
--- NOTE | 2016-11-08 14:34 | HHI.NSPN ---
(Mishel Foley) Note Status Status: Progress Note (Mishel Foley) Interval History Interval History Mr. Mccoy is a 61-year-old male who presents to the emergency department with intractable posterior thoracic pain. He reports his pain began several weeks ago and has been progressively getting worse. He had a previous history of T6 kyphoplasty with resolution of his pain. Mr. Mcmahan denies any precipitating factors, trauma, or falls. He complains the pain is located in the upper - mid thoracic region, around the T5/6 area. He denies any radiating pain, dysesthesias, sensory loss in his legs, focal weakness, bowel or bladder dysfunction. He rates his pain as a 10/10. A CT of the thoracic spine showed a wedge compression fracture at T11. A neurosurgical evaluation was requested. 3/2: reports pain located between the shoulder blades. He also reports of some pain in the left arm. MRI T spine showed Schmorl's node at T11 without any edema suggesting an acute component. 3/3: unchanged interscapular pain. MRI Cervical spine completed shows mild degenerative changes, no acute fractures. (Mishel Foley) Labs, Micro, & Vital Signs Results Date Time Temp Pulse Resp B/P Pulse Ox O2 Delivery O2 Flow Rate FiO2 11/08/16 12:45 97.9 91 18 102/59 97 11/08/16 08:44 97.5 86 18 101/65 94 11/08/16 04:00 97.4 89 18 99/59 96 11/08/16 00:00 97.6 87 18 132/78 94 11/08/16 00:00 97.6 87 18 132/78 94 11/07/16 20:00 97.0 112 18 134/81 94 11/07/16 16:31 98.7 99 16 132/65 95 11/08/16 07:00 Intake Total 600 ml Balance 600 ml Constitutional Vital Signs Date Time Temp Pulse Resp B/P Pulse Ox O2 Delivery O2 Flow Rate FiO2 11/08/16 12:45 97.9 91 18 102/59 97 11/08/16 08:44 97.5 86 18 101/65 94 11/08/16 04:00 97.4 89 18 99/59 96 11/08/16 00:00 97.6 87 18 132/78 94 11/08/16 00:00 97.6 87 18 132/78 94 11/07/16 20:00 97.0 112 18 134/81 94 11/07/16 16:31 98.7 99 16 132/65 95 11/08/16 07:00 Intake Total 600 ml Balance 600 ml (Mishel Foley) Review of Systems/Exam Exam Mr. Mcmahan is alert, sitting up in chair appears comfortable. Speech is appropriate. Cranial nerve: pupils 4 mm equal, round, and reactive to light. Facial motor are normal and symmetrical. Motor: moves all four extremities well (Mishel Foley) Medications Current Medications Current Medications Medications (Trade) Dose Ordered Sig/Talon Route PRN Reason Start Time Stop Time Status Last Admin Dose Admin Dextrose (D50w (Vial) Inj) 25 ml UNSCH PRN IV PUSH HYPOGLYCEMIA-SEE COMMENTS 11/06/16 12:15 Glucagon (Glucagon Inj) 1 mg UNSCH PRN OTHER HYPOGLYCEMIA-SEE COMMENTS 11/06/16 12:15 Hydromorphone HCl (Dilaudid Pf Inj) 1 mg Q4H PRN IV PUSH BREAKTHROUGH PAIN 11/06/16 12:15 Ondansetron HCl (Zofran Inj) 4 mg Q8H PRN IV PUSH NAUSEA 11/06/16 12:15 Acetaminophen (Tylenol) 650 mg Q4H PRN PO FEVER/HEADACHE 11/06/16 12:15 Budesonide/ Formoterol Fumarate (Symbicort 160-4.5 Inh) 2 puff BID INH 11/06/16 21:00 11/07/16 22:44 Enalaprilat (Vasotec Inj) 1.25 mg Q8H PRN IV PUSH SBP> OR = 180, DBP> OR = 100 11/06/16 13:00 Lactulose 30 ml 30 ml BID PO 11/07/16 21:00 11/08/16 09:14 Sodium Chloride (NS 500 ml Inj) 500 ml @ 50 mls/hr Q10H ONCE IV 11/08/16 12:00 11/08/16 21:59 11/08/16 12:30 Oxycodone HCl (Roxicodone) 5 mg Q6HR PRN PO PAIN LESS THAN 5 ON SCALE 11/08/16 18:00 Oxycodone HCl (Roxicodone) 10 mg Q6HR PRN PO PAIN GREATER THAN 5 11/08/16 18:00 (Mishel Foley) Medical Decision Making MDM Remarks 61 y/o male with upper thoracic pain, MRI T spine shows no acute fractures, Schmorl's node at T11 MRI C spine with mild degenerative changes, no significant stenosis or cord compression, no acute fracture (Mishel Foley) Plan Plan Remarks dw patient regarding MRI C spine finding, recommend nonsurgical management at this time, dw pt outpatient physical therapy or pain management (Mishel Foley) Attending Statement The exam, history, and the medical decision-making described in the above note were completed with the assistance of the mid-level provider. I reviewed and agree with the findings presented. I attest that I had a [id number] encounter with the patient on the same day, and personally performed and documented my assessment and findings in the medical record. (Srinivasan Alvares MD) Mishel Foley Nov 08, 2016 14:34 Srinivasan Alvares MD Nov 10, 2016 14:19 dw patient regarding MRI C spine finding, recommending nonsurgical management, dw pt to try outpatient physical therapy or pain management for his spondylosis, Mishel Foley Nov 08, 2016 14:34
[2016-11-08 16:25] VITALS: BP 103/62; PULSE 88; RESP 18; TEMP 97.5; O2SAT 98
[2016-11-08 20:58] VITALS: BP 105/64; PULSE 89; RESP 20; TEMP 97.4; O2SAT 96
[2016-11-09 00:30] VITALS: BP 88/57; PULSE 80; RESP 20; TEMP 96.2; O2SAT 93
[2016-11-09 04:00] VITALS: BP 89/56; PULSE 79; RESP 20; TEMP 96.7; O2SAT 96
[2016-11-09] MEDS: INSULIN ASPART SUPPLEMENTAL SCALE SQ SCH ×4 (06:44→21:00)
[2016-11-09 07:20] VITALS: BP 103/65; PULSE 95; RESP 19; TEMP 97.3; O2SAT 97
[2016-11-09 07:57] LABS: HEMATOCRIT 23.8 % (39.0-51.0)
[2016-11-09 08:18] LABS: BICARBONATE 27.7 MEQ/L (21.0-32.0); POTASSIUM 4.1 MEQ/L (3.5-5.1)
[2016-11-09] MEDS: BUDESONIDE-FORMOTEROL 160/4.5 MCG INHALER INH SCH ×2 (09:00→21:02)
[2016-11-09] MEDS: LACTULOSE SYRUP 20 GM/30 ML CUP PO SCH ×2 (09:20→21:00)
[2016-11-09 12:00] VITALS: BP 100/59; PULSE 83; RESP 20; TEMP 97.1; O2SAT 96
--- NOTE | 2016-11-09 12:13 | HHI.PR ---
Subjective Remarks resting comfortably with no distress. back pain is fairly controlled. d/w the RN and no acute issues over night. Objective Vitals Vital Signs Date Time Temp Pulse Resp B/P Pulse Ox O2 Delivery O2 Flow Rate FiO2 11/09/16 07:20 97.3 95 19 103/65 97 11/09/16 04:00 96.7 79 20 89/56 96 11/09/16 00:30 96.2 80 20 88/57 93 11/08/16 22:56 19 11/08/16 20:58 97.4 89 20 105/64 96 11/08/16 16:25 97.5 88 18 103/62 98 11/08/16 12:45 97.9 91 18 102/59 97 I/O 11/08/16 11/08/16 11/08/16 11/09/16 11/09/16 11/09/16 07:00 15:00 23:00 07:00 15:00 23:00 Intake Total 360 ml 720 ml Output Total 800 ml Balance 360 ml 720 ml -800 ml Intake Oral 360 ml 720 ml Output Urine Total 800 ml # Voids 6 3 0 Result Diagram: 11/09/16 0700 11/09/16 0700 Imaging Last Impressions Cervical Spine MRI 11/07/16 0000 Signed Impressions: Service Date/Time: November 15:11 - CONCLUSION: 1. Mild degenerative changes as described above. No evidence of disc protrusion or spinal canal stenosis. Ralph Loo MD Thoracic Spine MRI 11/06/16 0000 Signed Impressions: Service Date/Time: Sunday, November 06, 2016 16:16 - CONCLUSION: No evidence of acute fracture. Schmorl's node at T11. Ralph Loo MD Thoracic Spine CT 11/06/16 0000 Signed Impressions: Service Date/Time: Sunday, November 06, 2016 09:45 - CONCLUSION: Osteoporotic spine with anterior wedging as described above. There is wedging of T-11 that could be acute. MRI is the only way we have to sort this out without prior films which I have none. Kiko Maldonado MD FACR Objective Remarks GENERAL: This is a well-nourished, well-developed patient, in no apparent distress. CARDIOVASCULAR: Regular rate and regular rhythm without murmurs, gallops, or rubs. RESPIRATORY: Clear to auscultation. Breath sounds equal bilaterally. No wheezes , rales, or rhonchi. GASTROINTESTINAL: Abdomen soft, non-tender, nondistended. Normal, active bowel sounds MUSCULOSKELETAL: Extremities without clubbing, cyanosis, or edema. NEURO: Alert & Oriented x4 to person, place, time, situation. Moves all ext x4 Procedures none Medications and IVs Current Medications Dextrose (D50w (Vial) Inj) 25 ml UNSCH PRN IV PUSH HYPOGLYCEMIA-SEE COMMENTS; Start 11/06/16 at 12:15 Glucagon (Glucagon Inj) 1 mg UNSCH PRN OTHER HYPOGLYCEMIA-SEE COMMENTS; Start 11/06/16 at 12:15 Insulin Aspart (NovoLOG SUPPLEMENTAL SCALE) 1 ACHS SLIDING SCALE SQ Last administered on 11/08/16 06:37; Start 11/06/16 at 16:00 Acetaminophen/ Hydrocodone Bitart ([place] 5-325 Mg) 1 tab Q4H PRN PO PAIN 1-5; Start 11/06/16 at 12:15; Stop 11/06/16 at 14:37; Status DC Acetaminophen/ Hydrocodone Bitart ([place] 5-325 Mg) 2 tab Q4H PRN PO PAIN 6-10 ; Start 11/06/16 at 12:15; Stop 11/06/16 at 14:37; Status DC Hydromorphone HCl (Dilaudid Pf Inj) 1 mg Q4H PRN IV PUSH BREAKTHROUGH PAIN; Start 11/06/16 at 12:15 Ondansetron HCl (Zofran Inj) 4 mg Q8H PRN IV PUSH NAUSEA; Start 11/06/16 at 12: 15 Acetaminophen (Tylenol) 650 mg Q4H PRN PO FEVER/HEADACHE; Start 11/06/16 at 12: 15 Budesonide/ Formoterol Fumarate (Symbicort 160-4.5 Inh) 2 puff BID INH Last administered on 11/09/16 09:00; Start 11/06/16 at 21:00 Albuterol Sulfate (Albuterol Neb) 0.63 mg Q6HR NEB PRN NEB SHORTNESS OF BREATH ; Start 11/06/16 at 12:15 Enalaprilat (Vasotec Inj) 1.25 mg Q8H PRN IV PUSH SBP> OR = 180, DBP> OR = 100 ; Start 11/06/16 at 13:00 Oxycodone HCl (Roxicodone) 5 mg Q4H PRN PO PAIN LESS THAN 5 ON SCALE Last administered on 11/06/16 15:10; Start 11/06/16 at 14:45; Stop 11/08/16 at 12:01; Status DC Oxycodone HCl (Roxicodone) 10 mg Q4H PRN PO PAIN GREATER THAN 5 Last administered on 11/07/16 14:27; Start 11/06/16 at 14:45; Stop 11/08/16 at 12:01; Status DC Gadobenate Dimeglumine 17 ml 17 ml STK-MED ONCE IV Last administered on 16:25; Start 11/06/16 at 16:25; Stop 11/06/16 at 16:26; Status DC Sodium Chloride (NS 500 ml Inj) 500 ml @ 50 mls/hr Q10H ONCE IV Last administered on 11/07/16 13:01; Start 11/07/16 at 11:15; Stop 11/07/16 at 21:14; Status DC Lactulose 30 ml 30 ml BID PO Last administered on 11/09/16 09:20; Start at 21:00 Sodium Chloride (NS 500 ml Inj) 500 ml @ 50 mls/hr Q10H ONCE IV Last administered on 11/08/16 12:30; Start 11/08/16 at 12:00; Stop 11/08/16 at 21:59; Status DC Oxycodone HCl (Roxicodone) 5 mg Q6HR PRN PO PAIN LESS THAN 5 ON SCALE; Start at 18:00 Oxycodone HCl (Roxicodone) 10 mg Q6HR PRN PO PAIN GREATER THAN 5 Last administered on 11/09/16 06:47; Start 11/08/16 at 18:00 A/P Assessment and Plan A/P - back pain with history of thoracic spine fracture and surgery CT of the thoracic spine with possible acute fracture of T11 MRI of the thoracic spine with no acute fracture. MRI of the cervical spine with no spinal stenosis continue pain management- - neurosurgery follow-up appreciated and recommended non-surgical treatment with PT and pain management. consulted PT. -acute kidney injury; improved after IV fluid. -anemia due to chronic disease-H/H fairly stable- stool negative for blood- f/u as outpatient and this was d/w the patient. -diabetes mellitus; accu-check with SSI -hypertension; vasotec as needed -Cirrhosis;resume lasix but hold aldactone for now- continue lactulose -COPD with no exacerbation; neb treatment as needed -DVT prophylaxis with SCD's- Discharge Planning dc to SNF when bed is available. see med list. f/u with pcp. d/w the patient and JESSIE. Enedina Prajapati MD Nov 09, 2016 12:13
[2016-11-09] MEDS ORDERED: OXYC1CAP PO (12:15)
[2016-11-09] MEDS ORDERED: FURO1TAB60 PO (12:15)
[2016-11-09] MEDS ORDERED: POTA10TA8 PO (12:15)
--- NOTE | 2016-11-09 12:16 | HHI.DCPOC ---
Discharge Care Plan Diagnosis: (1) Back pain Your Health Problems Are: Difficulty with ADL Chronic Pain Goals to Promote Your Health * To prevent worsening of your condition and complications * To maintain your health at the optimal level Directions to Meet Your Goals Take your medications as prescribed Follow your dietary instruction Follow activity as directed Keep your appointments as scheduled Take your immunizations and boosters as scheduled If your symptoms worsen call your PCP, if no PCP go to Urgent Care Center or Emergency Room Smoking is Dangerous to Your Health. Avoid second hand smoke Call the 24-hour hour crisis hotline for domestic abuse at Enedina Prajapati MD Nov 09, 2016 12:16
--- NOTE | 2016-11-09 12:17 | HHI.DS ---
Discharge Summary Admission Date Nov 06, 2016 at 11:57 Discharge Date: Nov 11, 2016 Admitting Diagnosis thoracic back pain, thoracic fracture (1) Back pain ICD Code: M54.9 Diagnosis: Principal Procedures none Brief History - From Admission patient is a 61 y/o male with history of thoracic spine fracture- s/p surgery, about a year ago presented to ER with back pain. he says that the pain is in upper back. pain started several weeks ago and gradually got worse. he says that the pain is worse when he's sleeping on his side and better when he's walking. he tried some oxycodone and motrin at home with no significant improvement. he denies any weakness of the legs, urine or stool incontinence. he doesn't recall any recent falls or injuries. CBC/BMP: 11/09/16 0700 11/09/16 0700 Significant Findings Laboratory Tests Test 11/06/16 11/08/16 11/09/16 12:24 06:50 07:00 Red Blood Count 3.00 MIL/MM3 2.74 MIL/MM3 (4.50-5.90) (4.50-5.90) Hemoglobin 8.8 GM/DL 8.2 GM/DL 8.4 GM/DL (13.0-17.0) (13.0-17.0) (13.0-17.0) Hematocrit 25.4 % 23.1 % 23.8 % (39.0-51.0) (39.0-51.0) (39.0-51.0) Platelet Count 125 TH/MM3 138 TH/MM3 (150-450) (150-450) Monocytes (%) (Auto) 13.7 % 14.7 % (0.0-8.0) (0.0-8.0) Eosinophils (%) (Auto) 7.7 % (0.0-4.0) 6.5 % (0.0-4.0) Lymphocytes # (Auto) 0.9 TH/MM3 (1.0-4.8) Sodium Level 134 MEQ/L 133 MEQ/L (136-145) (136-145) Carbon Dioxide Level 20.7 MEQ/L (21.0-32.0) Blood Urea Nitrogen 20 MG/DL (7-18) 22 MG/DL (7-18) Creatinine 1.67 MG/DL 1.68 MG/DL (0.60-1.30) (0.60-1.30) Estimat Glomerular Filtration 42 ML/MIN (>89) 42 ML/MIN (>89) 59 ML/MIN (>89) Rate Random Glucose 133 MG/DL (74-106) Calcium Level 8.0 MG/DL (8.5-10.1) Iron Level 29 MCG/DL (65-175) Percent Iron Saturation 8.6 % (20-50) Imaging Last Impressions Cervical Spine MRI 11/07/16 0000 Signed Impressions: Service Date/Time: November 15:11 - CONCLUSION: 1. Mild degenerative changes as described above. No evidence of disc protrusion or spinal canal stenosis. Ralph Loo MD Thoracic Spine MRI 11/06/16 0000 Signed Impressions: Service Date/Time: Sunday, November 06, 2016 16:16 - CONCLUSION: No evidence of acute fracture. Schmorl's node at T11. Ralph Loo MD Thoracic Spine CT 11/06/16 0000 Signed Impressions: Service Date/Time: Sunday, November 06, 2016 09:45 - CONCLUSION: Osteoporotic spine with anterior wedging as described above. There is wedging of T-11 that could be acute. MRI is the only way we have to sort this out without prior films which I have none. Kiko Maldonado MD FACR PE at Discharge GENERAL: This is a well-nourished, well-developed patient, in no apparent distress. CARDIOVASCULAR: Regular rate and regular rhythm without murmurs, gallops, or rubs. RESPIRATORY: Clear to auscultation. Breath sounds equal bilaterally. No wheezes , rales, or rhonchi. GASTROINTESTINAL: Abdomen soft, non-tender, nondistended. Normal, active bowel sounds MUSCULOSKELETAL: Extremities without clubbing, cyanosis, or edema. NEURO: Alert & Oriented x4 to person, place, time, situation. Moves all ext x4 Hospital Course - back pain with history of thoracic spine fracture and surgery CT of the thoracic spine with possible acute fracture of T11 MRI of the thoracic spine with no acute fracture. MRI of the cervical spine with no spinal stenosis continue pain management- - neurosurgery follow-up appreciated and recommended non-surgical treatment with PT and pain management. consulted PT. -acute kidney injury; improved after IV fluid. -anemia due to chronic disease-H/H fairly stable- stool negative for blood- f/u as outpatient and this was d/w the patient. -diabetes mellitus; accu-check with SSI -hypertension; vasotec as needed -Cirrhosis;resume lasix but hold aldactone for now- continue lactulose -COPD with no exacerbation; neb treatment as needed -DVT prophylaxis with SCD's- Pt Condition on Discharge: Fair Discharge Disposition: Discharge to SNF Discharge Time: <= 30 minutes Discharge Instructions DIET: Follow Instructions for: Heart Healthy Diet, Diabetic Diet, Low Sodium Diet Activities you can perform: Regular-No Restrictions Follow up Referrals: PCP Follow-up New Medications: Furosemide (Lasix) 40 Mg Tab 40 MG PO DAILY diuretic #30 Ref 0 TAB Potassium Chloride ER (Potassium Chloride CR) 10 Meq Tab 10 MEQ PO DAILY electrolye supplement Days 30 Ref 0 TAB Continued Medications: Gabapentin (Gabapentin) 600 Mg Tab 600 MG PO TID TAB Hydroxyzine HCl (Hydroxyzine HCl) 10 Mg Tab 10 MG PO TID Ref 0 TAB Lactulose (Encephalopathy) Liq (Lactulose Liq) 19 Gm/15 Ml Soln BID Metformin 500 mg (Glucophage 500 mg) 500 Mg Tab 500 MG PO TID TAB Mometasone Furoate-Formoterol 100 mcg/dose (Dulera 100 mcg/dose) Unknown Strength Inh 2 PUFF INH BID BOX Oxycodone (Oxycodone) 5 Mg Cap 5 MG PO Q6H PRN PAIN #20 Ref 0 CAP (This prescription has been renewed) Discontinued Medications: Ciprofloxacin (Cipro) 250 Mg Tab 250 MG PO BID Infection Ref 0 TAB Furosemide (Lasix) 80 Mg Tab 80 MG PO DAILY #30 Ref 0 TAB Spironolactone (Spironolactone) 100 Mg Tab 100 MG PO DAILY #30 Ref 0 TAB Enedina Prajapati MD Nov 09, 2016 12:17
[2016-11-09 20:00] VITALS: BP 89/57; PULSE 96; RESP 20; TEMP 98.2; O2SAT 95
[2016-11-10 00:14] VITALS: BP_SYST 107; BP_SYST 122; BP_DIAS 64; BP_DIAS 79; PULSE 90; PULSE 91; RESP 16; RESP 18; TEMP 97.5; TEMP 97.8; O2SAT 93; O2SAT 98
[2016-11-10 04:21] VITALS: BP 99/64; PULSE 85; RESP 16; TEMP 97.6; O2SAT 96
[2016-11-10] MEDS: INSULIN ASPART SUPPLEMENTAL SCALE SQ SCH ×3 (06:40→21:00)
[2016-11-10 07:49] VITALS: BP 98/67; PULSE 79; RESP 18; TEMP 97; O2SAT 97
[2016-11-10] MEDS: BUDESONIDE-FORMOTEROL 160/4.5 MCG INHALER INH SCH ×2 (09:00→21:00)
[2016-11-10] MEDS: LACTULOSE SYRUP 20 GM/30 ML CUP PO SCH ×3 (09:06→17:46)
--- NOTE | 2016-11-10 11:17 | HHI.PR ---
Subjective Remarks in no acute distress. back pain is fairly controlled. no BM. d/w the RN at the bedside. Objective Vitals Vital Signs Date Time Temp Pulse Resp B/P Pulse Ox O2 Delivery O2 Flow Rate FiO2 11/10/16 07:49 97.0 79 18 98/67 97 11/10/16 04:21 97.6 85 16 99/64 96 11/10/16 00:14 97.5 90 16 107/64 98 11/09/16 20:00 98.2 96 20 89/57 95 11/09/16 12:00 97.1 83 20 100/59 96 I/O 11/09/16 11/09/16 11/09/16 11/10/16 11/10/16 11/10/16 07:00 15:00 23:00 07:00 15:00 23:00 Intake Total 600 ml Output Total 800 ml Balance -800 ml 600 ml Intake Oral 600 ml Output Urine Total 800 ml # Voids 3 2 # Bowel Movements 1 Result Diagram: 11/09/16 0700 11/09/16 0700 Imaging Last Impressions Cervical Spine MRI 11/07/16 0000 Signed Impressions: Service Date/Time: November 15:11 - CONCLUSION: 1. Mild degenerative changes as described above. No evidence of disc protrusion or spinal canal stenosis. Ralph Loo MD Thoracic Spine MRI 11/06/16 0000 Signed Impressions: Service Date/Time: Sunday, November 06, 2016 16:16 - CONCLUSION: No evidence of acute fracture. Schmorl's node at T11. Ralph Loo MD Thoracic Spine CT 11/06/16 0000 Signed Impressions: Service Date/Time: Sunday, November 06, 2016 09:45 - CONCLUSION: Osteoporotic spine with anterior wedging as described above. There is wedging of T-11 that could be acute. MRI is the only way we have to sort this out without prior films which I have none. Kiko Maldonado MD FACR Objective Remarks GENERAL: This is a well-nourished, well-developed patient, in no apparent distress. CARDIOVASCULAR: Regular rate and regular rhythm without murmurs, gallops, or rubs. RESPIRATORY: Clear to auscultation. Breath sounds equal bilaterally. No wheezes , rales, or rhonchi. GASTROINTESTINAL: Abdomen soft, non-tender, nondistended. Normal, active bowel sounds MUSCULOSKELETAL: Extremities without clubbing, cyanosis, or edema. NEURO: Alert & Oriented x4 to person, place, time, situation. Moves all ext x4 Procedures none Medications and IVs Current Medications Dextrose (D50w (Vial) Inj) 25 ml UNSCH PRN IV PUSH HYPOGLYCEMIA-SEE COMMENTS; Start 11/06/16 at 12:15 Glucagon (Glucagon Inj) 1 mg UNSCH PRN OTHER HYPOGLYCEMIA-SEE COMMENTS; Start 11/06/16 at 12:15 Insulin Aspart (NovoLOG SUPPLEMENTAL SCALE) 1 ACHS SLIDING SCALE SQ Last administered on 11/08/16 06:37; Start 11/06/16 at 16:00 Acetaminophen/ Hydrocodone Bitart ([place] 5-325 Mg) 1 tab Q4H PRN PO PAIN 1-5; Start 11/06/16 at 12:15; Stop 11/06/16 at 14:37; Status DC Acetaminophen/ Hydrocodone Bitart ([place] 5-325 Mg) 2 tab Q4H PRN PO PAIN 6-10 ; Start 11/06/16 at 12:15; Stop 11/06/16 at 14:37; Status DC Hydromorphone HCl (Dilaudid Pf Inj) 1 mg Q4H PRN IV PUSH BREAKTHROUGH PAIN; Start 11/06/16 at 12:15 Ondansetron HCl (Zofran Inj) 4 mg Q8H PRN IV PUSH NAUSEA; Start 11/06/16 at 12: 15 Acetaminophen (Tylenol) 650 mg Q4H PRN PO FEVER/HEADACHE; Start 11/06/16 at 12: 15 Budesonide/ Formoterol Fumarate (Symbicort 160-4.5 Inh) 2 puff BID INH Last administered on 11/10/16 09:00; Start 11/06/16 at 21:00 Albuterol Sulfate (Albuterol Neb) 0.63 mg Q6HR NEB PRN NEB SHORTNESS OF BREATH ; Start 11/06/16 at 12:15 Enalaprilat (Vasotec Inj) 1.25 mg Q8H PRN IV PUSH SBP> OR = 180, DBP> OR = 100 ; Start 11/06/16 at 13:00 Oxycodone HCl (Roxicodone) 5 mg Q4H PRN PO PAIN LESS THAN 5 ON SCALE Last administered on 11/06/16 15:10; Start 11/06/16 at 14:45; Stop 11/08/16 at 12:01; Status DC Oxycodone HCl (Roxicodone) 10 mg Q4H PRN PO PAIN GREATER THAN 5 Last administered on 11/07/16 14:27; Start 11/06/16 at 14:45; Stop 11/08/16 at 12:01; Status DC Gadobenate Dimeglumine 17 ml 17 ml STK-MED ONCE IV Last administered on 16:25; Start 11/06/16 at 16:25; Stop 11/06/16 at 16:26; Status DC Sodium Chloride (NS 500 ml Inj) 500 ml @ 50 mls/hr Q10H ONCE IV Last administered on 11/07/16 13:01; Start 11/07/16 at 11:15; Stop 11/07/16 at 21:14; Status DC Lactulose 30 ml 30 ml BID PO Last administered on 11/10/16 09:06; Start at 21:00 Sodium Chloride (NS 500 ml Inj) 500 ml @ 50 mls/hr Q10H ONCE IV Last administered on 11/08/16 12:30; Start 11/08/16 at 12:00; Stop 11/08/16 at 21:59; Status DC Oxycodone HCl (Roxicodone) 5 mg Q6HR PRN PO PAIN LESS THAN 5 ON SCALE; Start at 18:00 Oxycodone HCl (Roxicodone) 10 mg Q6HR PRN PO PAIN GREATER THAN 5 Last administered on 11/10/16 09:06; Start 11/08/16 at 18:00 A/P Assessment and Plan A/P - back pain with history of thoracic spine fracture and surgery CT of the thoracic spine with possible acute fracture of T11 MRI of the thoracic spine with no acute fracture. MRI of the cervical spine with no spinal stenosis continue pain management- - neurosurgery follow-up appreciated and recommended non-surgical treatment with PT and pain management. consulted PT. -acute kidney injury; improved after IV fluid. -anemia due to chronic disease-H/H fairly stable- stool negative for blood- f/u as outpatient and this was d/w the patient. -diabetes mellitus; accu-check with SSI -hypertension; vasotec as needed -Cirrhosis;resumed lasix but hold aldactone for now- increase lactulose -COPD with no exacerbation; neb treatment as needed -DVT prophylaxis with SCD's- Discharge Planning dc to SNF -likely early this week. see med list. f/u with pcp. d/w the patient and RN. Enedina Prajapati MD Nov 10, 2016 11:17
[2016-11-10 12:17] VITALS: BP 107/63; PULSE 79; RESP 17; TEMP 97.7; O2SAT 94
[2016-11-10] MEDS: hydrOXYzine HCL 25 MG TAB PO PRN ×2 (15:49→23:05)
[2016-11-10 15:53] VITALS: BP 120/78; PULSE 98; RESP 18; TEMP 97.6; O2SAT 97
[2016-11-10 20:00] VITALS: BP 115/65; PULSE 97; RESP 20; TEMP 98.5; O2SAT 96
[2016-11-11] VITALS: BP 128/69; PULSE 100; RESP 20; TEMP 98.6; O2SAT 97
[2016-11-11 04:00] VITALS: BP 98/64; PULSE 89; RESP 20; TEMP 97.2; O2SAT 97
[2016-11-11] MEDS: INSULIN ASPART SUPPLEMENTAL SCALE SQ SCH ×4 (06:39→21:41)
[2016-11-11] MEDS: hydrOXYzine HCL 25 MG TAB PO PRN ×3 (06:41→18:16)
[2016-11-11 08:06] VITALS: BP 105/57; PULSE 84; RESP 18; TEMP 96.7; O2SAT 93
[2016-11-11] MEDS: BUDESONIDE-FORMOTEROL 160/4.5 MCG INHALER INH SCH ×2 (09:00→20:59)
[2016-11-11] MEDS: LACTULOSE SYRUP 20 GM/30 ML CUP PO SCH ×3 (09:32→18:13)
--- NOTE | 2016-11-11 11:54 | HHI.PR ---
Subjective Remarks resting comfortably with no distress. pain is controlled. no other complaints. Objective Vitals Vital Signs Date Time Temp Pulse Resp B/P Pulse Ox O2 Delivery O2 Flow Rate FiO2 11/11/16 08:06 96.7 84 18 105/57 93 11/11/16 07:52 16 11/11/16 04:00 97.2 89 20 98/64 97 11/11/16 00:00 98.6 100 20 128/69 97 11/10/16 20:00 98.5 97 20 115/65 96 11/10/16 15:53 97.6 98 18 120/78 97 11/10/16 12:17 97.7 79 17 107/63 94 I/O 11/10/16 11/10/16 11/10/16 11/11/16 11/11/16 11/11/16 07:00 15:00 23:00 07:00 15:00 23:00 Intake Total 360 ml 240 ml 240 ml Balance 360 ml 240 ml 240 ml Intake Oral 360 ml 240 ml 240 ml # Voids 2 9 3 # Bowel Movements 1 1 3 Result Diagram: 11/09/16 0700 11/09/16 0700 Imaging Last Impressions Cervical Spine MRI 11/07/16 0000 Signed Impressions: Service Date/Time: November 15:11 - CONCLUSION: 1. Mild degenerative changes as described above. No evidence of disc protrusion or spinal canal stenosis. Ralph Loo MD Thoracic Spine MRI 11/06/16 0000 Signed Impressions: Service Date/Time: Sunday, November 06, 2016 16:16 - CONCLUSION: No evidence of acute fracture. Schmorl's node at T11. Ralph Loo MD Thoracic Spine CT 11/06/16 0000 Signed Impressions: Service Date/Time: Sunday, November 06, 2016 09:45 - CONCLUSION: Osteoporotic spine with anterior wedging as described above. There is wedging of T-11 that could be acute. MRI is the only way we have to sort this out without prior films which I have none. Kiko Maldonado MD FACR Objective Remarks GENERAL: This is a well-nourished, well-developed patient, in no apparent distress. CARDIOVASCULAR: Regular rate and regular rhythm without murmurs, gallops, or rubs. RESPIRATORY: Clear to auscultation. Breath sounds equal bilaterally. No wheezes , rales, or rhonchi. GASTROINTESTINAL: Abdomen soft, non-tender, nondistended. Normal, active bowel sounds MUSCULOSKELETAL: Extremities without clubbing, cyanosis, or edema. NEURO: Alert & Oriented x4 to person, place, time, situation. Moves all ext x4 Procedures none Medications and IVs Current Medications Dextrose (D50w (Vial) Inj) 25 ml UNSCH PRN IV PUSH HYPOGLYCEMIA-SEE COMMENTS; Start 11/06/16 at 12:15 Glucagon (Glucagon Inj) 1 mg UNSCH PRN OTHER HYPOGLYCEMIA-SEE COMMENTS; Start 11/06/16 at 12:15 Insulin Aspart (NovoLOG SUPPLEMENTAL SCALE) 1 ACHS SLIDING SCALE SQ Last administered on 11/08/16 06:37; Start 11/06/16 at 16:00 Acetaminophen/ Hydrocodone Bitart ([place] 5-325 Mg) 1 tab Q4H PRN PO PAIN 1-5; Start 11/06/16 at 12:15; Stop 11/06/16 at 14:37; Status DC Acetaminophen/ Hydrocodone Bitart ([place] 5-325 Mg) 2 tab Q4H PRN PO PAIN 6-10 ; Start 11/06/16 at 12:15; Stop 11/06/16 at 14:37; Status DC Hydromorphone HCl (Dilaudid Pf Inj) 1 mg Q4H PRN IV PUSH BREAKTHROUGH PAIN; Start 11/06/16 at 12:15 Ondansetron HCl (Zofran Inj) 4 mg Q8H PRN IV PUSH NAUSEA; Start 11/06/16 at 12: 15 Acetaminophen (Tylenol) 650 mg Q4H PRN PO FEVER/HEADACHE; Start 11/06/16 at 12: 15 Budesonide/ Formoterol Fumarate (Symbicort 160-4.5 Inh) 2 puff BID INH Last administered on 11/11/16 09:00; Start 11/06/16 at 21:00 Albuterol Sulfate (Albuterol Neb) 0.63 mg Q6HR NEB PRN NEB SHORTNESS OF BREATH ; Start 11/06/16 at 12:15; Stop 11/10/16 at 12:15; Status DC Enalaprilat (Vasotec Inj) 1.25 mg Q8H PRN IV PUSH SBP> OR = 180, DBP> OR = 100 ; Start 11/06/16 at 13:00 Oxycodone HCl (Roxicodone) 5 mg Q4H PRN PO PAIN LESS THAN 5 ON SCALE Last administered on 11/06/16 15:10; Start 11/06/16 at 14:45; Stop 11/08/16 at 12:01; Status DC Oxycodone HCl (Roxicodone) 10 mg Q4H PRN PO PAIN GREATER THAN 5 Last administered on 11/07/16 14:27; Start 11/06/16 at 14:45; Stop 11/08/16 at 12:01; Status DC Gadobenate Dimeglumine 17 ml 17 ml STK-MED ONCE IV Last administered on 16:25; Start 11/06/16 at 16:25; Stop 11/06/16 at 16:26; Status DC Sodium Chloride (NS 500 ml Inj) 500 ml @ 50 mls/hr Q10H ONCE IV Last administered on 11/07/16 13:01; Start 11/07/16 at 11:15; Stop 11/07/16 at 21:14; Status DC Lactulose 30 ml 30 ml BID PO Last administered on 11/10/16 09:06; Start at 21:00; Stop 11/10/16 at 11:22; Status DC Sodium Chloride (NS 500 ml Inj) 500 ml @ 50 mls/hr Q10H ONCE IV Last administered on 11/08/16 12:30; Start 11/08/16 at 12:00; Stop 11/08/16 at 21:59; Status DC Oxycodone HCl (Roxicodone) 5 mg Q6HR PRN PO PAIN LESS THAN 5 ON SCALE; Start at 18:00 Oxycodone HCl (Roxicodone) 10 mg Q6HR PRN PO PAIN GREATER THAN 5 Last administered on 11/11/16 06:41; Start 11/08/16 at 18:00 Lactulose (Lactulose Liq) 30 ml TID PO Last administered on 11/11/16 09:32; Start 11/10/16 at 13:00 Hydroxyzine HCl (Atarax) 25 mg Q6H PRN PO ITCHING Last administered on 3/6/ 17at 06:41; Start 11/10/16 at 15:30 A/P Assessment and Plan A/P - back pain with history of thoracic spine fracture and surgery CT of the thoracic spine with possible acute fracture of T11 MRI of the thoracic spine with no acute fracture. MRI of the cervical spine with no spinal stenosis continue pain management- - neurosurgery follow-up appreciated and recommended non-surgical treatment with PT and pain management. consulted PT. -acute kidney injury; improved after IV fluid. -anemia due to chronic disease-H/H fairly stable- stool negative for blood- f/u as outpatient and this was d/w the patient. -diabetes mellitus; accu-check with SSI -hypertension; vasotec as needed -Cirrhosis;resumed lasix but hold aldactone for now- increase lactulose -COPD with no exacerbation; neb treatment as needed -DVT prophylaxis with SCD's- Discharge Planning dc to SNF -when arrangements made. see med list. f/u with pcp. d/w the patient and JESSIE. Enedina Prajapati MD Nov 11, 2016 11:54
[2016-11-11 12:13] VITALS: BP 111/60; PULSE 94; RESP 18; TEMP 97.1; O2SAT 97
[2016-11-11 16:10] VITALS: BP 117/72; PULSE 106; RESP 18; TEMP 98; O2SAT 97
[2016-11-11 20:36] VITALS: BP 128/63; PULSE 99; RESP 18; TEMP 97; O2SAT 96
[2016-11-12] VITALS: BP 104/57; PULSE 89; RESP 20; TEMP 97.4; O2SAT 94
[2016-11-12] MEDS: hydrOXYzine HCL 25 MG TAB PO PRN ×2 (00:55→08:05)
[2016-11-12 05:15] VITALS: BP 101/62; PULSE 85; RESP 20; TEMP 97.6; O2SAT 95
[2016-11-12] MEDS: INSULIN ASPART SUPPLEMENTAL SCALE SQ SCH ×3 (06:21→16:00)
[2016-11-12] MEDS: BUDESONIDE-FORMOTEROL 160/4.5 MCG INHALER INH SCH (07:53)
[2016-11-12] MEDS: LACTULOSE SYRUP 20 GM/30 ML CUP PO SCH ×2 (07:53→13:17)
[2016-11-12 08:03] VITALS: BP_SYST 104; BP_SYST 125; BP_DIAS 55; BP_DIAS 83; PULSE 68; PULSE 78; RESP 18; RESP 20; TEMP 96.5; TEMP 96.7; O2SAT 95; O2SAT 97
--- NOTE | 2016-11-12 08:42 | HHI.PR ---
Subjective Remarks Follow-up visit back pain history of thoracic spine fracture and surgery, DM, anemia of chronic disease. Patient seen today. Reports he's been doing well. Sleeping well overnight. States that pain is managed with pain medication, not worsening. Complaints of pruritus, states Atarax with minimal effect. Otherwise, denies pain and discomfort. Denies SOB/ dyspnea. Denies chest pain , palpitations, headaches, dizziness. Denies fevers, chills, n/v/d. Denies dysuria, hematuria. Objective Vitals Vital Signs Date Time Temp Pulse Resp B/P Pulse Ox O2 Delivery O2 Flow Rate FiO2 11/12/16 08:03 96.7 78 18 104/55 95 11/12/16 05:15 97.6 85 20 101/62 95 11/12/16 00:00 97.4 89 20 104/57 94 11/11/16 20:36 97.0 99 18 128/63 96 11/11/16 18:50 18 11/11/16 16:10 98.0 106 18 117/72 97 11/11/16 12:13 97.1 94 18 111/60 97 I/O 11/11/16 11/11/16 11/11/16 11/12/16 11/12/16 11/12/16 07:00 15:00 23:00 07:00 15:00 23:00 Intake Total 240 ml 120 ml 720 ml 240 ml Output Total 0 ml Balance 240 ml 120 ml 720 ml 240 ml Intake Oral 240 ml 120 ml 720 ml 240 ml Output Urine Total 0 ml # Voids 3 6 3 # Bowel Movements 3 2 3 0 Result Diagram: 11/09/16 0700 11/09/16 0700 Imaging Last Impressions Cervical Spine MRI 11/07/16 0000 Signed Impressions: Service Date/Time: November 15:11 - CONCLUSION: 1. Mild degenerative changes as described above. No evidence of disc protrusion or spinal canal stenosis. Ralph Loo MD Thoracic Spine MRI 11/06/16 0000 Signed Impressions: Service Date/Time: Sunday, November 06, 2016 16:16 - CONCLUSION: No evidence of acute fracture. Schmorl's node at T11. Ralph Loo MD Thoracic Spine CT 11/06/16 0000 Signed Impressions: Service Date/Time: Sunday, November 06, 2016 09:45 - CONCLUSION: Osteoporotic spine with anterior wedging as described above. There is wedging of T-11 that could be acute. MRI is the only way we have to sort this out without prior films which I have none. Kiko Maldonado MD FACR Objective Remarks GENERAL: This is a well-nourished, well-developed patient, in no apparent distress. HEENT: Normocephalic. Pupils equal round and reactive. Nose without bleeding. Airway patent. NECK: Trachea midline. No JVD. Supple. CARDIOVASCULAR: Regular rate and rhythm 3/6 systolic murmurs, gallops, or rubs. RESPIRATORY: Clear to auscultation. Breath sounds equal bilaterally. No wheezes , rales, or rhonchi. GASTROINTESTINAL: Abdomen soft, non-tender, nondistended. Bowel Sounds normoactive x4. Abdominal scar slight erythema secondary to scratching. MUSCULOSKELETAL: Extremities without clubbing, cyanosis, or edema. NEUROLOGICAL: Awake and alert. Oriented x 3. No focal neuro deficit. BEAL. Normal speech. Procedures none A/P Problem List: (1) Back pain ICD Code: M54.9 Status: Acute (2) Thoracic back pain ICD Code: M54.6 Status: Acute (3) DM type 2 (diabetes mellitus, type 2) ICD Code: E11.9 Status: Acute (4) Anemia in chronic illness ICD Code: D63.8 Status: Acute (5) Pruritus ICD Code: L29.9 Status: Acute Assessment and Plan Patient is a 61 y/o male with history of thoracic spine fracture- s/p surgery, about a year ago presented to ER with back pain. he says that the pain is in upper back. pain started several weeks ago and gradually got worse. he says that the pain is worse when he's sleeping on his side and better when he's walking. he tried some oxycodone and motrin at home with no significant improvement. he denies any weakness of the legs, urine or stool incontinence. he doesn't recall any recent falls or injuries. - back pain with history of thoracic spine fracture and surgery CT of the thoracic spine with possible acute fracture of T11 MRI of the thoracic spine with no acute fracture. MRI of the cervical spine with no spinal stenosis continue pain management- - neurosurgery follow-up appreciated and recommended non-surgical treatment with PT and pain management. consulted PT. Plan to discharge to SNF. Awaiting for insurance authorization for now. Patient is able to ambulate and participate with his ADLs. If the possibility of an approval authorization may discharge home with home care, outpatient rehabilitation would probably be preferred. -acute kidney injury; improved after IV fluid. -anemia due to chronic disease-H/H fairly stable- stool negative for blood- f/u as outpatient and this was d/w the patient. - May start with ferrous sulfate daily. -diabetes mellitus; accu-check with SSI -hypertension; vasotec as needed -Cirrhosis;resumed lasix but hold aldactone for now- increase lactulose -COPD with no exacerbation; neb treatment as needed -Pruritus - Xerosis of the skin noted we'll add Aquaphor lotion. -DVT prophylaxis with SCD's- Discussed with patient, nursing, case management. Written by Josette Jaime, on behalf of Dr. Mitchell on 11/12/16 at . Discharge Planning Plan to discharge to SNF. Awaiting for insurance authorization today. Patient is able to ambulate and participate with his ADLs. If the possibility of an approval authorization may discharge home with home care, outpatient rehabilitation would probably be preferred. Attending Statement patient was seen today. no new complaints. pain is controlled. awaiting authorization from insurance for dc to SNF. rest of assessment and plan as noted above. Problem Qualifiers (1) Back pain: Qualified Code: M54.6 - Thoracic back pain, unspecified back pain laterality, unspecified chronicity (2) Thoracic back pain: Qualified Code: M54.6 - Midline thoracic back pain, unspecified chronicity Josette Maldonado Nov 12, 2016 08:42 Enedina Prajapati MD Nov 12, 2016 11:31
[2016-11-12] MEDS ORDERED: AQUAPHOR OINT 50 APPLIC/50 GM TUBE TOP PRN (08:45)
[2016-11-12 12:00] VITALS: BP 112/59; PULSE 80; RESP 18; TEMP 97.7; O2SAT 98
== END 2016-11-12 16:30 | DRG 552 ==
LOC: NEPB 08:25 → NEDA 11:57 → N05A 18:30
PROVIDERS: ADMIT Internal Medicine; ATTEND Internal Medicine
DX: M54.6 Pain in thoracic spine (principal); N17.9 Acute kidney failure, unspecified; E11.40 Type 2 diabetes mellitus with diabetic neuropathy, unspecified; K74.60 Unspecified cirrhosis of liver; J44.9 Chronic obstructive pulmonary disease, unspecified; D63.8 Anemia in other chronic diseases classified elsewhere; I10 Essential (primary) hypertension; L29.9 Pruritus, unspecified; Z79.84 Long term (current) use of oral hypoglycemic drugs
CPT/HCPCS: 72128; 72141; 72157; 80048; 82272; 82728; 82948; 83540; 83550; 85014; 85018; 85025; A9577; J1815; J7040

== ENCOUNTER 2017-02-10 12:41 | Emergency (ER) | payer SELFPAY ==
[~2017-02-10] VITALS: Ht 180.3 cm; Wt 79.0 kg
[~2017-02-10 12:41] MED LIST changes: +FURO1TAB60 PO; -HUMSS; +HYDR-755 PO; +LACT10SO27; +OXYC1CAP PO; +POTA10TA8 PO
[2017-02-10 12:43] VITALS: BP 114/71; PULSE 97; RESP 15; TEMP 98.2; O2SAT 98
--- NOTE | 2017-02-10 13:05 | PD ---
Physical Exam Time Seen by Provider: 13:03 Narrative 62 y/o male with a persistently bleeding area on the L arm. Started after IV was removed from the L arm at [facility]. Hx Cirrhosis. Denies anticoagulant use. Vital signs reviewed. Seen at triage desk. Awaiting bed placement. Data Data Last Documented VS Vital Signs Date Time Temp Pulse Resp B/P Pulse Ox O2 Delivery O2 Flow Rate FiO2 02/10/17 12:43 98.2 97 15 114/71 98 MDM Medical Record Reviewed: Yes Supervised Visit with JACQUELIN: Rob Womack Feb 10, 2017 13:04
[2017-02-10] MEDS ORDERED: GABA600T PO (14:19)
[2017-02-10] MEDS ORDERED: METF500T PO (14:19)
[2017-02-10] MEDS ORDERED: XIFA200T4 PO (14:19)
--- NOTE | 2017-02-10 14:49 | PD ---
HPI Chief Complaint: Wound/Suture/Staple Re-Check Time Seen by Provider: 14:47 Travel History International Travel<30 days: No Contact w/Intl Traveler<30days: No Traveled to known affect area: No History of Present Illness HPI 62-year-old male presents to emergency Department with complaint of continued bleeding from his IV site to his left forearm since one week ago. He says he's applied pressure and says it still continues to bleed. He denies lightheadedness, dizziness, near syncope. Denies anticoagulants. Has no other medical complaints. Allergies to penicillin. No other modifying factors or associated signs and symptoms. PFSH Past Medical History Cancer: No Cardiovascular Problems: No Cirrhosis: Yes COPD: Yes Cerebrovascular Accident: No Diabetes: Yes Patient Takes Glucophage: Yes Diminished Hearing: No Endocrine: Yes Genitourinary: No Hepatitis: Yes (C) Musculoskeletal: Yes Neurologic: No Psychiatric: No Reproductive: No Respiratory: Yes (COPD) Migraines: No Seizures: No Thyroid Disease: No Influenza Vaccination: Yes Past Surgical History Abdominal Surgery: Yes (bowel resection for diverticulitis, HERNIA MESH) Cardiac Surgery: No Ear Surgery: No Endocrine Surgery: No Eye Surgery: No Genitourinary Surgery: No Gynecologic Surgery: No Oral Surgery: No Thoracic Surgery: No Other Surgery: Yes (KYPHOPLASTY TO T6) Social History Alcohol Use: No Tobacco Use: No Substance Use: No Allergies-Medications (Allergen,Severity, Reaction): Coded Allergies: Penicillin (Verified Allergy, Severe, 02/10/17) Reported Meds & Prescriptions Reported Meds & Active Scripts Active Oxycodone (Oxycodone HCl) 5 Mg Cap 5 Mg PO Q6H PRN Reported Xifaxan (Rifaximin) 200 Mg Tab 350 Mg PO BID Metformin (Metformin HCl) 500 Mg Tab 500 Mg PO TIDPC With meals Gabapentin 600 Mg Tab 600 Mg PO TID Hydroxyzine HCl 10 Mg Tab 10 Mg PO TID Lactulose Liq (Lactulose (Encephalopathy) Liq) 19 Gm/15 Ml Soln BID Review of Systems Except as stated in HPI: all other systems reviewed are Neg Physical Exam Narrative GENERAL: Well-nourished, well-developed male patient, in no acute distress SKIN: Warm and dry. Left forearm with small wound without erythema, edema, drainage. No bleeding noted at this time. Left upper extremity is supple and non-tense with 2+ radial pulses and sensory intact. HEAD: Atraumatic. Normocephalic. EYES: Pupils equal and round. No scleral icterus. No injection or drainage. ENT: Mucosa pink and moist. Airway patent. NECK: Trachea midline. CARDIOVASCULAR: Regular rate. RESPIRATORY: No accessory muscle use. GASTROINTESTINAL: Flat. MUSCULOSKELETAL: No obvious deformities. No clubbing. No cyanosis. No edema. NEUROLOGICAL: Awake and alert. Oriented 3. No obvious cranial nerve deficits. Motor grossly within normal limits. Normal speech. PSYCHIATRIC: Appropriate mood and affect; insight and judgment normal. Data Data Last Documented VS Vital Signs Date Time Temp Pulse Resp B/P Pulse Ox O2 Delivery O2 Flow Rate FiO2 02/10/17 12:43 98.2 97 15 114/71 98 MDM Medical Decision Making Medical Screen Exam Complete: Yes Emergency Medical Condition: Yes Medical Record Reviewed: Yes Differential Diagnosis Bleeding from wound, medical clearance, wound recheck Narrative Course 62-year-old male with left forearm IV site from a week ago with continued bleeding. There is no bleeding noted to the site at this time. He denies anticoagulants. He has no other medical complaints. Instructed patient to follow up with primary care provider. Patient verbalizes understanding and agreement with treatment plan. Patient is medically cleared and stable for discharge. Discussed reasons to return to the emergency department. Instructed patient to follow up with primary care provider. Patient agrees with treatment plan. The patients vital signs are stable and the patient is stable for outpatient follow-up and treatment. Patient discharged home, stable and in no acute distress. Diagnosis Primary Impression: Bleeding from wound Referrals: Primary Care Physician Additional Instructions: Follow-up with primary care provider Return to the emergency department immediately with worsening of symptoms Med/Other Pt SpecificInfo: No Change to Meds, No Meds Exist/No RX given Disposition: 01 DISCHARGE HOME Condition: Stable Charley López Feb 10, 2017 14:49
== END 2017-02-10 15:19 | disposition home or self-care (01) ==
LOC: NEPK 12:41
DX: S51.802A Unspecified open wound of left forearm, initial encounter (principal); K74.60 Unspecified cirrhosis of liver; W45.8XXA Other foreign body or object entering through skin, initial encounter; Z88.0 Allergy status to penicillin
CPT/HCPCS: 99281